=== PATIENT | male | born 1995 | race Caucasian/White ===

== ENCOUNTER 2020-08-31 11:56 | Emergency (ER) | payer OTHER, SELFPAY ==
[2020-08-31 12:24] VITALS: BP 114/63; PULSE 77; RESP 32; TEMP 37.7; O2SAT 89; BMI 22.3
--- NOTE | 2020-08-31 12:46 | XR_ITS ---
EXAMINATION: XR CHEST CLINICAL INFORMATION: SOB. COMPARISON: None TECHNIQUE: Frontal view of the chest was obtained. FINDINGS: No significant abnormality is noted involving the heart, lungs, mediastinum, bony thorax or soft tissues. XR/XR chest 1V IMPRESSION: Unremarkable chest exam.
--- NOTE | 2020-08-31 12:49 | ED.SOB ---
HPI - SOB/Dyspnea General Chief Complaint: Dyspnea Stated Complaint: DIFF BREATHING Time Seen by Provider: 08/31/20 12:41 Source: patient Mode of arrival: ambulatory Limitations: no limitations History of Present Illness HPI Narrative: 25-year-old male previously healthy here with cough, shortness of breaths and tactile temps x1 week. No chest pain, leg swelling or pain. Denies recent travel or sick contacts MD elicited complaint: shortness of breath and cough Onset (ago): week(s) (1 week) Timing: constant Severity: moderate Exacerbating factors: exertion, movement and coughing Relieving factors: rest Associated symptoms: other (tactile temps ) Treatment prior to arrival: none Related Data Previous Rx's Medication Instructions Recorded albuterol sulfate 2 inh INHALATION Q4-6H PRN #1 ea 08/31/20 ibuprofen 600 mg PO Q8H PRN #20 tab 08/31/20 prednisone 40 mg PO DAILY 4 Days #8 tab 08/31/20 Allergies Allergy/AdvReac Type Severity Reaction Status Date / Time No Known Allergies Allergy Verified 08/31/20 12:45 Review of Systems Review of Systems: Yes all other systems are reviewed and are negative Constitutional: Constitutional: Reports no additional constitutional complaints, Denies body ache(s), Denies chills, Denies fever(s), Denies headache(s) and Denies weakness Eyes: Eyes: Reports no additional eye complaints and Denies change in vision ENT: Reports system reviewed and no additional complaints, except as documented, Denies dizziness, Denies headache(s), Denies nasal congestion, Denies nasal discharge and Denies neck pain Cardiovascular: Cardiovascular: Reports no additional cardiovascular complaints, Denies chest pain, Denies leg edema and Reports dyspnea Respiratory: Respiratory: Reports no additional respiratory complaints, Reports cough and Reports dyspnea Gastrointestinal: Gastrointestinal: Reports no additional gastrointestinal complaints, Denies abdominal pain, Denies diarrhea, Denies nausea and Denies vomiting Genitourinary: Genitourinary: Denies urinary incontinence Musculoskeletal: Musculoskeletal: Reports no additional musculoskeletal complaints, Denies back pain, Denies arthralgias, Denies joint swelling, Denies neck pain, Denies numbness and Denies tingling Integumentary/Breasts: Skin/Breast: Reports system reviewed and no additional complaints, except as docu and Denies rash Neurologic: Reports system reviewed and no additional complaints, except as documented, Denies Abnormal speech present, Denies dizziness, Denies headache(s), Denies numbness, Denies tingling and Denies weakness PMFSH Past Medical History Attestation statement: The following information was validated with the patient. Source: old records reviewed and nursing notes reviewed Medical History No known health problems Social History Social History Advance Directives: No Advance Directives Information Provided: Yes Physical Exam Vital Signs: Vital Signs: Last Vital Signs Temp 98.8 F 08/31/20 15:19 Pulse 85 08/31/20 15:19 Resp 24 H 08/31/20 13:46 BP 123/65 08/31/20 15:19 Pulse Ox 100 08/31/20 15:19 Body Mass Index 22.3 Const: General: cooperative Orientation/consciousness: patient oriented x3 Limitations: no limitations HENMT: Head: Yes normal to inspection Ears: hearing grossly normal bilaterally General nose exam: Normal external nose present Face and sinus: Yes normal facial exam Mouth: Normal oral and palatal mucosa present Throat: Yes posterior oropharynx normal Eyes: General: appearance normal, both eyes and all related structures Pupils: Equal, round and reactive pupils present Neck: Neck: Yes normal visual inspection Chest: Chest palpation & inspection: normal inspection of the chest Resp: Other: patient is sitting upright, tachypnea with a rate of 32 noted, tracheal tugging and supraclavicular retractions noted. Patient has prolonged expirations, extra Navi wheezing and coarse upper airway sounds. Cardio: Rate: regular rate Rhythm: regular rhythm Peripheral pulses: Peripheral pulses 2+ throughout GI: Inspection: Yes normal to inspection Palpation (GI): Soft to palpation and nontender Auscultation: normal bowel sounds Back/Spine/Pelvis: Thoracic/Lumbar Spine: thoracic and lumbar spine normal to inspection Skin: General skin exam: no rashes or lesions noted Neuro: General: patient oriented x3, no focal motor deficits and normal sensation to monofilament Cranial nerves: Yes Equal, round and reactive pupils present Cognition (Neuro): normal cognition Speech: No Abnormal speech present Gait exam (Neuro): Normal gait present Motor exam (neuro): 5/5 motor strength present throughout Extrem: General: Yes normal to inspection Course Course Course Narrative: 25-year-old male previously healthy who arrives with shortness of breath and cough with respiratory rate in the 30s and a room air saturation of 89%. Will need a chest x-ray, labs, COVID testing, normal saline bolus, Solu-Medrol and nebulizer. 1405- Labs unremarkable. Chest x-ray negative for underlying pneumonia. COVID and influenza swab negative. Respiratory rate, tachycardia and hypoxia likely secondary to underlying asthma and not sepsis. CTA ordered to r/o PE. 1655- discussed patient with Dr. Posada. CTA negative for PE. No underlying infiltrate. Patient is feeling improved. He is up ambulating with oxygen saturation of 94%. He feels much improved and would like to be discharged home. ?viral syndrome vs underlying asthma vs bronchitis. Will treat with course of prednisone, home albuterol. Reviewed worrisome signs and symptoms when to return to the emergency department. Comfortable discharge home. MDM - SOB/Dyspnea Medical Records Attestation: I reviewed the patient's medical records. Lab Data Attestation: I reviewed the patient's lab results. Result diagrams: 08/31/20 12:57 08/31/20 12:57 Labs: Lab Results 08/31/20 08/31/20 08/31/20 Range/Units 12:56 12:57 12:57 WBC 10.7 (4.8-10.8) X10*3/uL RBC 4.95 (4.60-5.80) X10*6/uL Hgb 16.4 (14.0-18.0) g/dl Hct 47.4 (42-52) % MCV 95.8 (80-98) fL MCH 33.1 H (27.0-33.0) pg MCHC 34.6 (31.0-36.0) g/dl RDW 12.0 (11.0-16.0) % Plt Count 368 (160-400) X10*3/uL MPV 11.1 (9.4-12.4) fL Immature Gran % (Auto) 0.3 (0.0-0.4) % Neut % (Auto) 27.9 L (45-73) % Lymph % (Auto) 34.9 (20-40) % [place] % (Auto) 9.7 (2-11) % Eos % (Auto) 25.3 H (0-4) % Baso % (Auto) 1.9 (0-2) % Lymph # (Auto) 3.7 (1.2-4.9) X10*3/uL [place] # (Auto) 1.0 (0.1-1.2) X10*3/uL Eos # (Auto) 2.7 H (0.0-0.4) X10*3/uL Baso # (Auto) 0.2 (0.0-0.2) X10*3/uL Abs Immat Gran (auto) 0.03 (0.00-0.03) X10*3/uL Absolute Neuts (auto) 3.0 (2.0-8.3) X10*3/uL Absolute Nucleated RBC 0.000 (0.0-0.012) X10*3/uL Nucleated RBC % (auto) 0.0 (0.0-0.2) /100WBC Sodium 138 (135-145) mmol/L Potassium 3.9 (3.3-5.1) mmol/l Chloride 97 (96-108) mmol/L Carbon Dioxide 32 H (22-29) mmol/L Anion Gap 13 (12-20) BUN 17 H (9-16) mg/dL Creatinine 1.10 (0.5-1.4) mg/dL Estim Creat Clear Calc 87.1 Estimated GFR > 60 Random Glucose 111 (60-115) mg/dL Lactic Acid 1.2 (0.5-2.0) mmol/L Calcium 9.5 (8.4-10.2) mg/dL Magnesium 2.2 (1.6-2.6) mg/dL Total Bilirubin 1.2 H (0.0-1.0) mg/dL Direct Bilirubin 0.4 (0.0-0.5) mg/dL AST 12 (5-37) U/L ALT 8 (0-40) U/L Alkaline Phosphatase 79 (39-117) U/L Total Protein 8.2 H (6.5-8.0) g/dL Albumin 4.3 (3.5-5.0) g/dL Coronavirus (PCR) (Negative) Influenza Type A (PCR) (Negative) Influenza Type B (PCR) (Negative) RSV RNA Qual (PCR) (Negative) 08/31/20 Range/Units 13:13 WBC (4.8-10.8) X10*3/uL RBC (4.60-5.80) X10*6/uL Hgb (14.0-18.0) g/dl Hct (42-52) % MCV (80-98) fL MCH (27.0-33.0) pg MCHC (31.0-36.0) g/dl RDW (11.0-16.0) % Plt Count (160-400) X10*3/uL MPV (9.4-12.4) fL Immature Gran % (Auto) (0.0-0.4) % Neut % (Auto) (45-73) % Lymph % (Auto) (20-40) % [place] % (Auto) (2-11) % Eos % (Auto) (0-4) % Baso % (Auto) (0-2) % Lymph # (Auto) (1.2-4.9) X10*3/uL [place] # (Auto) (0.1-1.2) X10*3/uL Eos # (Auto) (0.0-0.4) X10*3/uL Baso # (Auto) (0.0-0.2) X10*3/uL Abs Immat Gran (auto) (0.00-0.03) X10*3/uL Absolute Neuts (auto) (2.0-8.3) X10*3/uL Absolute Nucleated RBC (0.0-0.012) X10*3/uL Nucleated RBC % (auto) (0.0-0.2) /100WBC Sodium (135-145) mmol/L Potassium (3.3-5.1) mmol/l Chloride (96-108) mmol/L Carbon Dioxide (22-29) mmol/L Anion Gap (12-20) BUN (9-16) mg/dL Creatinine (0.5-1.4) mg/dL Estim Creat Clear Calc Estimated GFR Random Glucose (60-115) mg/dL Lactic Acid (0.5-2.0) mmol/L Calcium (8.4-10.2) mg/dL Magnesium (1.6-2.6) mg/dL Total Bilirubin (0.0-1.0) mg/dL Direct Bilirubin (0.0-0.5) mg/dL AST (5-37) U/L ALT (0-40) U/L Alkaline Phosphatase (39-117) U/L Total Protein (6.5-8.0) g/dL Albumin (3.5-5.0) g/dL Coronavirus (PCR) NEGATIVE (Negative) Influenza Type A (PCR) NEGATIVE (Negative) Influenza Type B (PCR) NEGATIVE (Negative) RSV RNA Qual (PCR) NEGATIVE (Negative) Imaging Data Chest x-ray: Attestation: I personally reviewed and interpreted this imaging study as follows: Radiologist's impression: EXAMINATION: XR CHEST CLINICAL INFORMATION: SOB. COMPARISON: None TECHNIQUE: Frontal view of the chest was obtained. FINDINGS: No significant abnormality is noted involving the heart, lungs, mediastinum, bony thorax or soft tissues. XR/XR chest 1V IMPRESSION: Unremarkable chest exam. Discharge Plan Discharge Clinical Impression: Bronchitis Patient Disposition: Home, Self-Care Instructions: Acute Bronchitis (ED) Additional Instructions: Start your prednisone tomorrow Use your inhaler starting today every 4-6 hours as needed for cough or wheezing Increase fluids, rest follow-up with your primary care doctor Prescriptions: New prednisone 20 mg tablet 40 mg PO DAILY 4 Days Qty: 8 RF: 0 ibuprofen 600 mg tablet 600 mg PO Q8H PRN (Reason: fever or pain) Qty: 20 RF: 0 albuterol sulfate 90 mcg/actuation aerosol powdr breath activated 2 inh inhalation Q4-6H PRN (Reason: shortness of breath or wheezing) Qty: 1 RF: 0 Referrals: Physician,None [Primary Care Provider] - 2 days Stand Alone Forms: Work/School Release Interventions: ED Discharge Assessment Last Done: 08/31/20 17:00 Discharge Date/Time: 08/31/20 17:02
[2020-08-31] MEDS: 0.9 % Sodium Chloride 1,000 ML 999 ML IV (12:55)
[2020-08-31] MEDS: methylPREDNISolone Sod Succ/PF 125 MG/2 ML VIAL IVPUSH (12:55)
[2020-08-31 13:06] VITALS: PULSE 96; O2SAT 100
[2020-08-31] MEDS: Albuterol Sulfate (0.083%) 2.5 MG/3 ML VIAL.NEB 10 MG INHALE (13:06)
[2020-08-31 13:13] LABS: MANUAL DIFF FLAG NO
[2020-08-31 13:18] LABS: Basophils Absolute Auto 0.2 X10*3/uL (0.0-0.2); Basophils Percent Auto 1.9 % (0-2); Eosinophils Absolute Auto 2.7 X10*3/uL (0.0-0.4); Eosinophils Percent Auto 25.3 % (0-4); Hematocrit 47.4 % (42-52); Hemoglobin 16.4 g/dl (14.0-18.0); Imm Gran Abs Auto 0.03 X10*3/uL (0.00-0.03); Imm Gran Pct Auto 0.3 % (0.0-0.4); Lymphocytes Absolute Auto 3.7 X10*3/uL (1.2-4.9); Lymphocytes Percent Auto 34.9 % (20-40); Mean Corpuscular HGB Conc 34.6 g/dl (31.0-36.0); Mean Corpuscular Hemoglobin 33.1 pg (27.0-33.0); Mean Corpuscular Volume 95.8 fL (80-98); Mean Platelet Volume 11.1 fL (9.4-12.4); Monocytes Percent Auto 9.7 % (2-11); Neutrophils Percent Auto 27.9 % (45-73); Platelet Count 368 X10*3/uL (160-400); Red Blood Count 4.95 X10*6/uL (4.60-5.80); White Blood Count 10.7 X10*3/uL (4.8-10.8)
[2020-08-31 13:35] LABS: Lactic Acid 1.2 mmol/L (0.5-2.0)
[2020-08-31 13:41] LABS: Alanine Aminotransferase 8 U/L (0-40); Albumin Level 4.3 g/dL (3.5-5.0); Alkaline Phosphatase 79 U/L (39-117); Anion Gap 13 (12-20); Aspartate Amino Transferase 12 U/L (5-37); Bilirubin Direct 0.4 mg/dL (0.0-0.5); Bilirubin Total 1.2 mg/dL (0.0-1.0); Blood Urea Nitrogen 17 mg/dL (9-16); Calcium 9.5 mg/dL (8.4-10.2); Carbon Dioxide 32 mmol/L (22-29); Chloride 97 mmol/L (96-108); Creatinine Clr Calc Pharmacy 87.1; Estimated Glomerular Filt Rate > 60; Glucose Random 111 mg/dL (60-115); Magnesium 2.2 mg/dL (1.6-2.6); Potassium 3.9 mmol/l (3.3-5.1); Sodium 138 mmol/L (135-145); Total Protein 8.2 g/dL (6.5-8.0)
[2020-08-31 13:46] VITALS: BP 110/50; PULSE 108; RESP 24
[2020-08-31 13:58] LABS: Influenza A PCR NEGATIVE (Negative); Influenza B PCR NEGATIVE (Negative); Resp Syncy Virus RNA Qual PCR NEGATIVE (Negative); SARS COV2 PCR INHOUSE NEGATIVE (Negative)
--- NOTE | 2020-08-31 14:12 | CT_ITS ---
EXAMINATION: CT ANGIOGRAM OF THE CHEST WITH AND WITHOUT CONTRAST (CT PULMONARY ANGIOGRAM FOR PE) CLINICAL INFORMATION: Reason for Exam hypoxia, shortness of breath, r/o pe COMPARISON: Chest x-ray from earlier the same day TECHNIQUE: Prior to contrast administration, noncontrast localization images were obtained. Subsequently, multidetector volumetric imaging was performed from the thoracic inlet to below the diaphragms following the administration of 65 mL Omnipaque 350 intravenous contrast. No contrast reaction reported Sagittal, coronal, and MIP oblique sagittal reformatted images were obtained on the CT workstation, uploaded to PACS, and reviewed. This CT examination was performed using dose optimization techniques as appropriate, variously including the following: *Automated exposure control *Adjustment of mA and/or kV according to patient size (this includes techniques or standardized protocols for targeted exams where dose is matched to indication/reason for exam; i.e. extremities or head) *Use of iterative reconstruction technique Total exam dose-length product 240 mGy-cm FINDINGS: QUALITY OF STUDY/CONTRAST BOLUS: Satisfactory. PULMONARY ARTERIES: No central or segmental pulmonary emboli. THORACIC AORTA: No aneurysm or dissection. LUNG: There are scattered areas of mild bronchial wall thickening and soft tissue opacification. There are small areas of increased peribronchial attenuation seen in the right lower lobe at the right lung base. The largest area measures 5 x 7 mm axial image 376 series 9. The lungs are otherwise clear. No evidence of a pneumonia is seen. PLEURA: No pleural effusion or pneumothorax. MEDIASTINUM: Normal heart size. No pericardial effusion. There is shotty mediastinal and bilateral hilar lymphadenopathy. No enlarged lymph nodes are seen. No evidence of septal bowing or right heart strain. CHEST WALL/AXILLA: No axillary or internal mammary lymphadenopathy. OSSEOUS STRUCTURES: No acute or suspicious osseous abnormality. UPPER ABDOMEN: Unremarkable. No reflux of contrast into the hepatic veins to suggest elevated right heart pressures. CT/CT angio chest PE protocol IMPRESSION: No evidence of pulmonary embolism. Scattered areas of mild bronchial wall thickening and increased peribronchial attenuation suggestive of airways disease. No evidence of pneumonia. VTE: negative
[2020-08-31] MEDS: iohexoL 350 MG/ML 100 ML INFUS..BTL IV (14:50)
--- NOTE | 2020-08-31 15:14 | PC.NURSE ---
pt resting comfortably, remains ns on monitor. resps are nonlabored and pt is speaking in full clear sentences. pt slightly drowsy but denies discomfort. bronchial and vesicular ls clear, no accessory muscle use noted. awaitng ct reprt. 02 titrted to 1lpm
[2020-08-31 15:19] VITALS: BP 123/65; PULSE 85; TEMP 37.1; O2SAT 100
== END 2020-08-31 17:02 | disposition home or self-care (01) ==
PROVIDERS: Nurse Practitioner Family; Emergency Provider Internal Medicine
DX: J20.9 Acute bronchitis, unspecified (principal); R05 Cough; R06.02 Shortness of breath; Z20.828 Contact with and (suspected) exposure to other viral communicable diseases; Z79.899 Other long term (current) drug therapy
CPT/HCPCS: 0241U; 36415; 71045; 71275; 80048; 80076; 83605; 83735; 85025; 87040; 94640; 94644; 96361; 96374; 99284; J2930; Q9967

== ENCOUNTER 2020-09-30 19:13 | Emergency (ER) | payer OTHER, SELFPAY ==
--- NOTE | 2020-09-30 | XR_ITS ---
EXAMINATION: XR CHEST CLINICAL INFORMATION: SOB with wheezing. COMPARISON: None TECHNIQUE: 2 views of the chest were obtained. FINDINGS: The lungs are hyperinflated but clear of acute process. The heart size and pulmonary vascularity is normal. No gross bony abnormality seen. XR/XR chest 2V IMPRESSION: Hyperinflated lungs without acute process.
[2020-09-30 19:17] VITALS: BP 166/75; PULSE 93; RESP 24; TEMP 36.7; O2SAT 94; BMI 23.8
[2020-09-30] MEDS: Magnesium Sulfate/H2O 2 GM/50 ML PIGGYBACK IV (19:50)
--- NOTE | 2020-09-30 19:53 | ED.ASTHMA ---
HPI - Asthma General Chief Complaint: Asthma Stated Complaint: Bronchitis Time Seen by Provider: 09/30/20 19:51 Source: patient Mode of arrival: ambulatory Limitations: no limitations History of Present Illness HPI Narrative: seen here on 08/31 dx with asthma had negative CTA - sent home with prednisone and inhaler but could not fill due to lack of ID MD complaint: asthma attack Onset (ago): week(s) (2) Severity: severe and similar to prior Context: none known Associated symptoms: dry cough Asthma History: childhood onset Treatments Prior to Arrival: inhaled bronchodilator Related Data Allergies Allergy/AdvReac Type Severity Reaction Status Date / Time No Known Allergies Allergy Verified 08/31/20 12:45 Review of Systems Review of Systems: Constitutional : No Fever, No Chills ENT/Mouth : No Hoarseness, No sore throat, No Rhinorrhea Eyes: No Redness, No Discharge, No Vision Changes Cardiovascular : No Chest Pain, positive SOB, positive Dyspnea on Exertion, No Edema Respiratory : positive Cough, No Sputum, positive Wheezing, Gastrointestinal : No Nausea, No Vomiting, No Diarrhea, No abdominal Pain Genitourinary : No Dysuria, No Hematuria Musculoskeletal : No joint pain, No Myalgias Skin : No rash Neuro : No Weakness, No Numbness, No Headache Psych : No anxiety, depression Heme/Lymph: No Bruising, No Bleeding Endocrine : No Polyuria, No Polydipsia All other systems reviewed and are negative PMFSH Past Medical History Attestation statement: The following information was validated with the patient. Medical History (Updated 09/30/20 @ 21:31 by Danelle Carmona DO) Asthma No known health problems Social History Social History (Updated 09/30/20 @ 20:03 by Danelle Carmona DO) Smoking Status: Never smoker Use of substances other than those prescribed or required for medical reasons: Yes Substance Use Type: Marijuana Substance Use Frequency: Occasionally Advance Directives: No Advance Directives Information Provided: Yes Physical Exam Vital Signs: Vital Signs: Last Vital Signs Temp 98.8 F 09/30/20 21:40 Pulse 130 H 09/30/20 21:40 Resp 10 L 09/30/20 21:40 BP 159/72 H 09/30/20 21:40 Pulse Ox 98 09/30/20 21:40 Body Mass Index 23.8 Appearance: Alert. Oriented X3. Moderate acute distress. Eyes: Pupils equal, round and reactive to light. ENT: Pharynx normal. Neck: Normal inspection. Neck supple. CVS: Normal heart rate and rhythm. Pulses normal. Respiratory: Moderate respiratory distress. Breath sounds audible exp and insp wheezes, retractions tachypnea Abdomen: Soft and nontender. Skin: Skin warm and diaphoretic. Normal skin color. Normal skin turgor. Extremities: No lower extremity edema. No calf ttp Neuro: Oriented X 3. No motor deficit. No sensory deficit. Course Course Course Narrative: repeat 10mg neb, still hypoxic and wheezing - COVID negative after 2nd treatment HR in 130s lungs improved, 100% I planned to admit him but he refuses, has no ID for prescriptions will give dexamethasone liquid and INH in hand, he is aware I am worried he could but he states he doesn't want to stay feels better and will not be here on New Years [place] after attempting to walk out the patient now agrees to stay MDM - Asthma MDM Narrative Medical decision making narrative: 25 yo male asthmatic seen for same recently - did not fill Rx due to lack of ID - at this time will need hour long 10mg neb, IV steroids, IV magnesium, dispo per results and improvement Lab Data Result diagrams: 09/30/20 20:11 09/30/20 20:11 Labs: Lab Results 09/30/20 09/30/20 09/30/20 Range/Units 20:11 20:11 20:11 WBC 10.5 (4.8-10.8) X10*3/uL RBC 4.55 L (4.60-5.80) X10*6/uL Hgb 15.0 (14.0-18.0) g/dl Hct 43.5 (42-52) % MCV 95.6 (80-98) fL MCH 33.0 (27.0-33.0) pg MCHC 34.5 (31.0-36.0) g/dl RDW 11.5 (11.0-16.0) % Plt Count 301 (160-400) X10*3/uL MPV 11.7 (9.4-12.4) fL Immature Gran % (Auto) 0.3 (0.0-0.4) % Neut % (Auto) 55.5 (45-73) % Lymph % (Auto) 22.2 (20-40) % [place] % (Auto) 11.2 H (2-11) % Eos % (Auto) 10.1 H (0-4) % Baso % (Auto) 0.7 (0-2) % Lymph # (Auto) 2.3 (1.2-4.9) X10*3/uL [place] # (Auto) 1.2 (0.1-1.2) X10*3/uL Eos # (Auto) 1.1 H (0.0-0.4) X10*3/uL Baso # (Auto) 0.1 (0.0-0.2) X10*3/uL Abs Immat Gran (auto) 0.03 (0.00-0.03) X10*3/uL Absolute Neuts (auto) 5.8 (2.0-8.3) X10*3/uL Absolute Nucleated RBC 0.000 (0.0-0.012) X10*3/uL Nucleated RBC % (auto) 0.0 (0.0-0.2) /100WBC Sodium 140 (135-145) mmol/L Potassium 4.6 (3.3-5.1) mmol/l Chloride 100 (96-108) mmol/L Carbon Dioxide 32 H (22-29) mmol/L Anion Gap 13 (12-20) BUN 17 H (9-16) mg/dL Creatinine 0.91 (0.5-1.4) mg/dL Estim Creat Clear Calc 97.5 Estimated GFR > 60 Random Glucose 123 H (60-115) mg/dL Calcium 9.0 (8.4-10.2) mg/dL COVID-19 ([facility]) Negative (Negative) COVID-19 Clin Com See Note Critical Care Time Critical Care Time Critical Care Time: Yes Total Critical Care Time: 60 Attestation: 2 hour long 10mg neb treatments, supplemental O2 I attest to this time spent taking care of the patient Discharge Plan Discharge Clinical Impression: Asthma with acute exacerbation Qualifiers: Asthma severity: moderate Asthma persistence: persistent Qualified Code(s): J45.41 - Moderate persistent asthma with (acute) exacerbation Patient Disposition: Admitted As Inpatient Additional Instructions: return to ED for any worsening symptoms or concerns IT WAS RECOMMENDED YOU STAY IN THE HOSPITAL AND RECEIVE TREATMENT FOR YOUR ASTHMA, IT WAS VERY SEVERE, YOU CAN COME BACK IF YOU CHANGE YOUR MIND AT ANY TIME, USE INHALER 4 PUFFS EVERY 2 TO 4 HOURS NEEDED FOR WHEEZING, YOU WERE GIVEN AN ORAL STEROID THAT SHOULD LAST THE NEXT FEW DAYS IN YOUR SYSTEM Discharge Date/Time: 09/30/20 22:06 Print Language: Bulgarian
[2020-09-30] MEDS: methylPREDNISolone Sod Succ/PF 125 MG/2 ML VIAL IVPUSH (20:00)
[2020-09-30] MEDS: Albuterol Sulfate (0.083%) 2.5 MG/3 ML VIAL.NEB 10 MG INHALE ×2 (20:01→20:49)
[2020-09-30 20:19] LABS: MANUAL DIFF FLAG NO
[2020-09-30 20:20] LABS: Basophils Absolute Auto 0.1 X10*3/uL (0.0-0.2); Basophils Percent Auto 0.7 % (0-2); Eosinophils Absolute Auto 1.1 X10*3/uL (0.0-0.4); Eosinophils Percent Auto 10.1 % (0-4); Hematocrit 43.5 % (42-52); Imm Gran Abs Auto 0.03 X10*3/uL (0.00-0.03); Imm Gran Pct Auto 0.3 % (0.0-0.4); Lymphocytes Absolute Auto 2.3 X10*3/uL (1.2-4.9); Lymphocytes Percent Auto 22.2 % (20-40); Mean Corpuscular HGB Conc 34.5 g/dl (31.0-36.0); Mean Corpuscular Volume 95.6 fL (80-98); Mean Platelet Volume 11.7 fL (9.4-12.4); Monocytes Absolute Auto 1.2 X10*3/uL (0.1-1.2); Monocytes Percent Auto 11.2 % (2-11); Neutrophils Absolute Auto 5.8 X10*3/uL (2.0-8.3); Neutrophils Percent Auto 55.5 % (45-73); Platelet Count 301 X10*3/uL (160-400); Red Blood Count 4.55 X10*6/uL (4.60-5.80); Red Cell Distribution Width 11.5 % (11.0-16.0); White Blood Count 10.5 X10*3/uL (4.8-10.8)
[2020-09-30 20:25] VITALS: BP 119/56; PULSE 129; RESP 22; RESP 26; TEMP 37.2; O2SAT 100
[2020-09-30 20:33] LABS: COVID-19 Test Negative (Negative); IDNOW Serial# 9DD0AD1C
[2020-09-30 20:50] VITALS: O2SAT 96
[2020-09-30 20:59] LABS: Anion Gap 13 (12-20); Blood Urea Nitrogen 17 mg/dL (9-16); Carbon Dioxide 32 mmol/L (22-29); Chloride 100 mmol/L (96-108); Creatinine Clr Calc Pharmacy 97.5; Estimated Glomerular Filt Rate > 60; Glucose Random 123 mg/dL (60-115); Potassium 4.6 mmol/l (3.3-5.1); Sodium 140 mmol/L (135-145)
[2020-09-30 21:40] VITALS: BP 159/72; PULSE 130; RESP 10; TEMP 37.1; O2SAT 98
[2020-09-30] MEDS: Albuterol Sulfate 90 MCG 8 GM INHALER 2 PUFF INHALE (23:20)
--- NOTE | 2020-10-01 00:34 | P.HPHOSP_ITS ---
History of Present Illness Date of Service: 09/30/20 Chief Complaint: Asthma exacerbation This is a 25-year-old male with past medical history of asthma presents to the hospital with shortness of breath, wheezing, cough. Patient reports his symptoms started about few days ago, has no inhalers at home, is not sure if he has insurance even, and have worsened. Patient has no fever or chills, has no recent sick contacts or recent travel. No abdominal pain. He has nausea and had 1 episode of vomiting in the ED. Has no diarrhea constipation. No urinary symptoms and no lower extremity edema. On arrival to the ED patient's temp of 99.8?, respiratory rate of 24, blood pressure 166/75, heart rate of 93, satting 94% on room air. Patient desats to 90% on movement. Past medical history: Asthma Surgical history: Denies any surgeries Family history: Positive for diabetes Social history: Smokes weed sometimes denies smoking tobacco use any alcohol or illicit drugs. Review of Systems Review of Systems: Yes all other systems are reviewed and are negative [facility] Medical History Asthma No known health problems Social History (Updated 09/30/20 @ 20:03 by Danelle Carmona DO) Smoking Status: Never smoker Use of substances other than those prescribed or required for medical reasons: Yes Substance Use Type: Marijuana Substance Use Frequency: Occasionally Advance Directives: No Advance Directives Information Provided: Yes Meds Allergies Allergy/AdvReac Type Severity Reaction Status Date / Time No Known Allergies Allergy Verified 08/31/20 12:45 Home Medications Medication Instructions Recorded Confirmed Type No Known Home Meds 09/30/20 09/30/20 History Physical Exam Vital Signs and Narrative: Vital Signs: Last Vital Signs Temp 98.8 F 09/30/20 21:40 Pulse 130 H 09/30/20 21:40 Resp 10 L 09/30/20 21:40 BP 159/72 H 09/30/20 21:40 Pulse Ox 98 09/30/20 21:40 Body Mass Index 23.8 Const: General: cooperative and no acute distress Orientation/consciousness: patient oriented x3 Eyes: General: appearance normal, both eyes and all related structures Resp: Effort & Inspection: normal respiratory effort and able to speak in complete sentences Auscultation: wheezes Cardio: Rate: regular rate Rhythm: regular rhythm GI: Palpation (GI): Soft to palpation Auscultation: normal bowel sounds Skin: General skin exam: no rashes or lesions noted Neuro: General: patient oriented x3 Cognition (Neuro): normal cognition Extrem: General: Yes normal to inspection and Yes no pedal edema Results Labs CBC and Chem 7: 09/30/20 20:11 09/30/20 20:11 Labs: Laboratory Results - last 24 hr 09/30/20 09/30/20 09/30/20 20:11 20:11 20:11 MCV 95.6 MCH 33.0 MCHC 34.5 RDW 11.5 Plt Count 301 MPV 11.7 Immature Gran % (Auto) 0.3 Neut % (Auto) 55.5 Lymph % (Auto) 22.2 [place] % (Auto) 11.2 H Eos % (Auto) 10.1 H Baso % (Auto) 0.7 Lymph # (Auto) 2.3 [place] # (Auto) 1.2 Eos # (Auto) 1.1 H Baso # (Auto) 0.1 Abs Immat Gran (auto) 0.03 Absolute Neuts (auto) 5.8 Absolute Nucleated RBC 0.000 Nucleated RBC % (auto) 0.0 Anion Gap 13 Estim Creat Clear Calc 97.5 Estimated GFR > 60 Random Glucose 123 H Calcium 9.0 COVID-19 ([facility]A) Negative COVID-19 Clin Com See Note Imaging Radiologist's Impressions: Impressions Chest X-Ray 09/30/20 00:00 IMPRESSION: Hyperinflated lungs without acute process. Assessment and Plan (1) Asthma exacerbation: Qualifiers: Asthma severity: moderate Asthma persistence: persistent Qualified Code(s): J45.41 - Moderate persistent asthma with (acute) exacerbation Status: Acute 25-year-old male who presents to the hospital with asthma exacerbation. # asthma exacerbation - COVID-19 negative, pneumonia negative on chest x-ray - afebrile no leukocytosis - will start him on DuoNeb q.i.d. as well as p.r.n., as well as Solu-Medrol 40 IV b.i.d. - monitor respiratory status
--- NOTE | 2020-10-01 01:59 | PC.NURSE ---
Patient's vital signs were as follows 124/84, 17, 99 % room air, 94 HR
--- NOTE | 2020-10-01 04:00 | PC.NURSE ---
Patient is sleeping, respiratory rate equal and unlabored. Patient's respiratory rate is 15. Patient is currently waiting for bed assignment.
--- NOTE | 2020-10-01 07:42 | PC.NURSE ---
pt states he does not want to stay for admission, states he is going to call his sister when she is awake at 9am and have her come get him. HE states understanding of risk associated with leaving AMA.
[2020-10-01 08:08] VITALS: BP 149/8; PULSE 82; RESP 16; TEMP 37.1; O2SAT 98
[2020-10-01 08:22] LABS: Hematocrit 41.1 % (42-52); Hemoglobin 14.3 g/dl (14.0-18.0); Mean Corpuscular HGB Conc 34.8 g/dl (31.0-36.0); Mean Corpuscular Hemoglobin 32.9 pg (27.0-33.0); Mean Corpuscular Volume 94.7 fL (80-98); Mean Platelet Volume 11.5 fL (9.4-12.4); Platelet Count 318 X10*3/uL (160-400); Red Blood Count 4.34 X10*6/uL (4.60-5.80); Red Cell Distribution Width 11.6 % (11.0-16.0)
[2020-10-01 08:24] LABS: WBC ABN SCTR FOR CBC 1
[2020-10-01 08:43] LABS: Band Neutrophils Percent 2 % (3-5); Lymphocytes Percent Manual 20 % (20-40); Monocytes Percent Manual 9 % (2-11); Neutrophils Percent Manual 69 % (45-73); Platelet Estimate NORMAL (NORMAL); Platelet Morphology Comment NORMAL; RBC Morphology NORMAL
[2020-10-01 08:44] LABS: Lymphocytes Absolute Manual 1.9 X10*3/uL (0.6-4.8); Monocytes Absolute Manual 0.8 X10*3/uL (0.0-1.2); Neutrophils Absolute Manual 6.6 X10*3/uL (2.2-7.9); White Blood Count 9.3 X10*3/uL (4.8-10.8)
[2020-10-01 08:52] LABS: Anion Gap 12 (12-20); Blood Urea Nitrogen 15 mg/dL (9-16); Calcium 9.5 mg/dL (8.4-10.2); Carbon Dioxide 31 mmol/L (22-29); Chloride 100 mmol/L (96-108); Creatinine Clr Calc Pharmacy 119.8; Estimated Glomerular Filt Rate > 60; Glucose Random 142 mg/dL (60-115); Potassium 4.3 mmol/l (3.3-5.1); Sodium 139 mmol/L (135-145)
--- NOTE | 2020-10-02 12:54 | MHC.CM.ED ---
i spoke c patient's - alvarado and grandson - geni, patient lives c both of them and they are his caregivers. unfortunately, geni has a re-injured bad back from helping his grandfather this a.m. and alvarado is elderly herself. they are requesting help c pt's adl's in the home. because of insurances this would be a groves pay scenario and would not be able to happen until next week d/t holiday weekend. additionally, the family said they cannot afford such svcs. this being said, if patient were to return home then the care would fall on the family again, at this time they are supporting patient go to [facility], possibly getting a PT eval tomorrow - monday and then transferring. pt has been to [facility] before. this conversation was shared with the PA in the e.d. caring for patient. cm to cont. to follow.
== END 2020-10-01 09:38 | disposition home or self-care (01) ==
PROVIDERS: Internal Medicine; Emergency Provider Emergency Medicine
DX: J45.41 Moderate persistent asthma with (acute) exacerbation (principal); Z20.828 Contact with and (suspected) exposure to other viral communicable diseases
CPT/HCPCS: 36415; 71046; 80048; 85007; 85025; 85027; 87635; 94640; 96365; 96375; 99285; 99291; J2920; J2930; J3475

== ENCOUNTER 2021-05-17 04:16 | Emergency (ER) | payer OTHER, SELFPAY ==
--- NOTE | ~2021-05-17 | XR_ITS ---
EXAMINATION: XR CHEST CLINICAL INFORMATION: Productive cough COMPARISON: 09/30/2020 TECHNIQUE: Frontal view of the chest was obtained. FINDINGS: Cardiac leads overlie the chest. The lungs are well expanded. There is no focal consolidation, edema, or effusion. No pneumothorax. The cardiomediastinal silhouette is within normal limits. No acute osseous abnormality. XR/XR chest 1V IMPRESSION: No acute pulmonary finding.
[2021-05-17 04:57] VITALS: BP 149/102; PULSE 101; RESP 20; TEMP 37.4; O2SAT 96; BMI 23.2
[2021-05-17 05:18] LABS: COVID-19 Test Negative (Negative); IDNOW Serial# 9DD0AD1C
--- NOTE | 2021-05-17 05:35 | ED.ASTHMA ---
HPI - Asthma General Chief Complaint: Asthma Stated Complaint: asthma Time Seen by Provider: 05/17/21 05:27 Source: patient Mode of arrival: ambulatory History of Present Illness HPI Narrative: This is a 26-year-old male with history of asthma states that he ran out of his medication as had progressive worsening of shortness of breath with associated chest tightness and he reports productive cough over the past day. Patient otherwise denies any sore throat, fever, chills, recent travel. Related Data Previous Rx's Medication Instructions Recorded albuterol sulfate 90 mcg/actuation 2 puff INHALATION Q6H PRN #6.7 g 10/01/20 aerosol inhaler prednisone 20 mg tablet 40 mg PO DAILY PRN #10 tab 10/01/20 Allergies Allergy/AdvReac Type Severity Reaction Status Date / Time No Known Allergies Allergy Verified 05/17/21 04:57 Review of Systems Review of Systems: Pertinent positives and negatives as stated in HPI 10 point review of systems is otherwise negative. [facility] Past Medical History Source: nursing notes reviewed Medical History Asthma No known health problems Social History Social History Substance Use Type: Marijuana Advance Directives: No Advance Directives Information Provided: Yes Physical Exam Vital Signs: Vital Signs: Last Vital Signs Temp 99.4 F 05/17/21 04:57 Pulse 94 05/17/21 06:38 Resp 10 L 05/17/21 06:38 BP 149/102 H 05/17/21 04:57 Pulse Ox 87 L 05/17/21 06:38 Body Mass Index 23.2 VITAL SIGNS: Reviewed. GENERAL: Well developed, well nourished, in no acute distress. HEAD: Normocephalic/atraumatic EYES: PERRLA, EOMI OROPHARYNX: no oral lesions noted, posterior pharynx clear NECK: Supple, no adenopathy LUNGS: Poor inspiratory effort, wheezing throughout without noted rhonchi or rales, tachypnea SpO2<93> CARDIOVASCULAR: Regular rate and rhythm without noted murmurs ABDOMEN: Soft, non-tender, non-distended with bowel sounds. SKIN: Inspection of the skin reveals no rashes NEUROLOGIC: Alert and oriented x 4. Course Course Course Narrative: This is a 26-year-old male with history and clinical presentation consistent with moderate to severe asthma exacerbation will be treated with nebulized treatment as well as steroids and magnesium. On re-evaluation and review of all investigations patient reports he is feeling better, however was noted to be 87% while sleeping and chest x-ray/COVID testing is negative for acute findings. Patient is now receiving his 2nd 10 mg nebulized treatment with continued wheezing throughout. Case discussed with inpatient hospitalist who agrees and accepts admission. MDM - Asthma Lab Data Labs: Lab Results 05/17/21 Range/Units 05:00 COVID-19 ([facility]A) Negative (Negative) COVID-19 Clin Com See Note Discharge Plan Discharge Clinical Impression: Asthma with acute exacerbation, Hypoxia Patient Disposition: Admitted As Inpatient Prescriptions: No Action prednisone 20 mg tablet 40 mg PO DAILY PRN (Reason: 5 days) Qty: 10 RF: 0 albuterol sulfate 90 mcg/actuation HFA aerosol inhaler 2 puff inhalation Q6H PRN (Reason: shortness of breath or wheezing) Qty: 6.7 RF: 0
[2021-05-17] MEDS: Albuterol Sulfate (0.083%) 2.5 MG/3 ML VIAL.NEB 10 MG INHALE ×2 (05:37→06:50)
[2021-05-17] MEDS: methylPREDNISolone Sod Succ 125 MG/2 ML VIAL IVPUSH (05:38)
[2021-05-17] MEDS: Magnesium Sulfate/H2O 2 GM/50 ML PIGGYBACK IV (05:38)
[2021-05-17 06:38] VITALS: PULSE 94; RESP 10; O2SAT 87
[2021-05-17 06:53] VITALS: PULSE 90; O2SAT 92
[2021-05-17 07:02] LABS: MANUAL DIFF FLAG NO
[2021-05-17 07:35] LABS: Alanine Aminotransferase 11 U/L (0-40); Albumin Level 4.6 g/dL (3.5-5.0); Alkaline Phosphatase 75 U/L (39-117); Anion Gap 12 (12-20); Aspartate Amino Transferase 14 U/L (5-37); Bilirubin Total 1.1 mg/dL (0.0-1.0); Blood Urea Nitrogen 12 mg/dL (9-16); Calcium 9.5 mg/dL (8.4-10.2); Carbon Dioxide 28 mmol/L (22-29); Chloride 101 mmol/L (96-108); Creatinine Clr Calc Pharmacy 128.8; Estimated Glomerular Filt Rate > 60; Glucose Random 131 mg/dL (60-115); Potassium 3.8 mmol/L (3.3-5.1); Sodium 137 mmol/L (135-145); Total Protein 8.1 g/dL (6.5-8.0)
[2021-05-17 08:00] VITALS: BP 152/79; PULSE 104; O2SAT 98
[2021-05-17 08:41] LABS: Basophils Absolute Auto 0.1 X10*3/uL (0.0-0.2); Eosinophils Absolute Auto 0.6 X10*3/uL (0.0-0.4); Eosinophils Percent Auto 5.6 % (0-4); Hematocrit 40.3 % (42-52); Hemoglobin 14.2 g/dl (14.0-18.0); Imm Gran Abs Auto 0.02 X10*3/uL (0.00-0.03); Imm Gran Pct Auto 0.2 % (0.0-0.4); Lymphocytes Absolute Auto 1.3 X10*3/uL (1.2-4.9); Lymphocytes Percent Auto 13.2 % (20-40); Mean Corpuscular HGB Conc 35.2 g/dl (31.0-36.0); Mean Corpuscular Volume 93.7 fL (80-98); Mean Platelet Volume 11.2 fL (9.4-12.4); Monocytes Absolute Auto 0.5 X10*3/uL (0.1-1.2); Monocytes Percent Auto 5.2 % (2-11); Neutrophils Absolute Auto 7.6 X10*3/uL (2.0-8.3); Neutrophils Percent Auto 74.8 % (45-73); Platelet Count 304 X10*3/uL (160-400); Red Cell Distribution Width 11.7 % (11.0-16.0); White Blood Count 10.2 X10*3/uL (4.8-10.8)
== END 2021-05-17 12:42 | disposition home or self-care (01) ==
PROVIDERS: Emergency Provider Student in an Organized Health Care Education/Training Program
DX: J45.901 Unspecified asthma with (acute) exacerbation (principal); R09.02 Hypoxemia; Z20.822 Contact with and (suspected) exposure to COVID-19; F12.90 Cannabis use, unspecified, uncomplicated
CPT/HCPCS: 36415; 71045; 80053; 85025; 87635; 94644; 94645; 96365; 96366; 96375; 99284; 99285; J2930; J3475

== ENCOUNTER 2021-11-22 18:40 | Emergency (ER) | payer OTHER, SELFPAY ==
[2021-11-22] VITALS (7 sets, daily range): BP systolic 108–155; BP diastolic 50–106; PULSE 91–114; RESP 20–28; TEMP 36.6–36.8; O2SAT 97–100; BMI 22.3
--- NOTE | ~2021-11-22 | XR_ITS ---
EXAMINATION: XR CHEST CLINICAL INFORMATION: Shortness of breath COMPARISON: 05/17/2021 TECHNIQUE: Frontal view of the chest was obtained. FINDINGS: No significant abnormality is noted involving the heart, lungs, mediastinum, bony thorax or soft tissues. XR/XR chest 1V IMPRESSION: Unremarkable examination.
--- NOTE | 2021-11-22 19:14 | ED_ITS ---
HPI - Asthma General Chief Complaint: Asthma Stated Complaint: asthma attack Time Seen by Provider: 11/22/21 19:12 Source: patient Mode of arrival: ambulatory Limitations: no limitations History of Present Illness HPI Narrative: Patient comes to the emergency room complaining of an asthma exacerbation that started yesterday. Patient states that his asthma usually responds well to albuterol pump. However, yesterday he ran out of medication. Patient denies fever chills Related Data Previous Rx's Medication Instructions Recorded albuterol sulfate 90 mcg/actuation 2 puff INHALATION Q6H PRN #6.7 g 10/01/20 aerosol inhaler albuterol sulfate 90 mcg/actuation 2 puff INHALATION Q4-6H PRN #8.5 g 05/17/21 aerosol inhaler (ProAir HFA) prednisone 20 mg tablet 40 mg PO DAILY #10 tab 05/17/21 albuterol sulfate 90 mcg/actuation 2 puff INHALATION Q4-6H PRN #8.5 g 11/22/21 aerosol inhaler prednisone 50 mg tablet 50 mg PO DAILY #5 tab 11/22/21 Allergies Allergy/AdvReac Type Severity Reaction Status Date / Time No Known Allergies Allergy Verified 05/17/21 04:57 Review of Systems Review of Systems: Constitutional : No Weight loss, No Fever, No Chills, No Night Sweats, No Fatigue, No Malaise ENT/Mouth : No Hearing loss, No Ear Pain, No Nasal Congestion, No Sinus Pain, No Hoarseness, No sore throat, No Rhinorrhea, No Swallowing Difficulty Eyes: No Eye Pain, No Swelling, No Redness, No Foreign Body, No Discharge, No Vision Changes Cardiovascular : No Chest Pain, No SOB, No Dyspnea on Exertion, No Orthopnea, No Edema, No Palpitations Respiratory : Complaining of mild Cough, No Sputum, complaining of wheezing or shortness of breath Gastrointestinal : No Nausea, No Vomiting, No Diarrhea, No Constipation, No abdominal Pain, No Hematochezia, No Melena Genitourinary : no irregular bleeding, No Dysuria, No Urinary Frequency, No Hematuria, No Urinary Incontinence, No Urgency, No Flank Pain, No Urinary Flow Changes, No Hesitancy Musculoskeletal : No joint pain, No Myalgias, No Joint Swelling Skin : No Skin Lesions, No rash Neuro : No Weakness, No Numbness, No Paresthesias, No Loss of Consciousness, No Dizziness, No Headache Psych : No Anxiety/Panic, No Depression, No SI/HI/AH/VH, No Social Issues, Heme/Lymph: No Bruising, No Bleeding,No Lymphadenopathy Endocrine : No Polyuria, No Polydipsia, No Temperature Intolerance PMF Past Medical History Medical History Asthma No known health problems Social History Social History Substance Use Type: Marijuana Physical Exam Vital Signs: Vital Signs: Last Vital Signs Temp 98 F 11/22/21 19:00 Pulse 107 H 11/22/21 20:43 Resp 20 11/22/21 20:43 BP 147/76 H 11/22/21 19:26 Pulse Ox 100 11/22/21 19:26 BMI result Body Mass Index 22.3 Const: Other: Appearance: Alert. Oriented X3. [id number] respiratory distress Eyes: Pupils equal, round and reactive to light. ENT: Pharynx normal. Neck: Normal inspection. Neck supple. No lymph nodes noted. No crepitus CVS: Normal heart rate and rhythm. Pulses normal. Normal S1 and S2 Respiratory: Mild to moderate respiratory distress, diffuse wheezing, oxygen saturation 94% on room air, speaking and 2 word sentences Abdomen: Soft and nontender. No rigidity. No distention. Skin: Skin warm and dry. Normal skin color. Normal skin turgor. Extremities: No lower extremity edema. No lower extremity edema. No Lacerations. No Rash Neuro: Oriented X 3. No motor deficit. No sensory deficit. Moving all ex termities. No slurred speech. Course Course Course Narrative: After 1 hour long a nebulization treatment, patient has an oxygen saturation of 94%, patient states that he feels better. However, he still wheezing. A 2nd our long nebulization treatment is being given. Patient was already given Solu- Medrol and magnesium. Depending on patient's physical exam and oxygen saturation after 2nd nebuliz ation, patient may either be discharged or admitted. Sign-out given to Dr. Goff. MDM - Asthma Lab Data Result diagrams: 11/22/21 19:17 11/22/21 19:17 Labs: Lab Results 11/22/21 11/22/21 11/22/21 Range/Units 19:17 19:17 19:17 WBC 11.0 H (4.8-10.8) X10*3/uL RBC 4.53 L (4.60-5.80) X10*6/uL Hgb 14.3 (14.0-18.0) g/dl Hct 42.8 (42.0-52.0) % MCV 94.5 (80.0-98.0) fL MCH 31.6 (27.0-33.0) pg MCHC 33.4 (31.0-36.0) g/dl RDW 13.0 (11.0-16.0) % Plt Count 494 H (160-400) X10*3/uL MPV 10.6 (9.4-12.4) fL Immature Gran % (Auto) 0.4 (0.0-0.4) % Neut % (Auto) 43.7 L (45-73) % Lymph % (Auto) 30.9 (20-40) % [place] % (Auto) 8.2 (2-11) % Eos % (Auto) 15.1 H (0-4) % Baso % (Auto) 1.7 (0-2) % Lymph # (Auto) 3.4 (1.2-4.9) X10*3/uL [place] # (Auto) 0.9 (0.1-1.2) X10*3/uL Eos # (Auto) 1.7 H (0.0-0.4) X10*3/uL Baso # (Auto) 0.2 (0.0-0.2) X10*3/uL Abs Immat Gran (auto) 0.04 H (0.00-0.03) X10*3/uL Absolute Neuts (auto) 4.8 (2.0-8.3) x10*3/uL Absolute Nucleated RBC 0.000 (0.0-0.012) X10*3/uL Nucleated RBC % (auto) 0.0 (0.0-0.2) /100WBC Smear Tech's Comments VERIFIED Sodium 142 (135-145) mmol/L Potassium 4.0 (3.3-5.1) mmol/L Chloride 103 (96-108) mmol/L Carbon Dioxide 33 H (22-29) mmol/L Anion Gap 10 L (12-20) BUN 11 (9-16) mg/dL Creatinine 0.89 (0.5-1.4) mg/dL Estim Creat Clear Calc 106.7 Estimated GFR > 60 Random Glucose 106 (60-115) mg/dL Calcium 9.9 (8.4-10.2) mg/dL COVID-19 ([facility]A) Negative (Negative) COVID-19 Clin Com See Note Discharge Plan Discharge Clinical Impression: Asthma with acute exacerbation Patient Disposition: Still a Patient Instructions: Asthma (ED) Additional Instructions: Please follow-up with your primary care physician tomorrow. If you have any worsening or new symptoms, please return to the emergency room or call 911 Prescriptions: New albuterol sulfate 90 mcg/actuation HFA aerosol inhaler 2 puff inhalation Q4-6H PRN (Reason: shortness of breath or wheezing) Qty: 8.5 1RF prednisone 50 mg tablet 50 mg PO DAILY Qty: 5 0RF No Action albuterol sulfate 90 mcg/actuation HFA aerosol inhaler 2 puff inhalation Q6H PRN (Reason: shortness of breath or wheezing) Qty: 6.7 0RF albuterol sulfate [ProAir HFA] 90 mcg/actuation HFA aerosol inhaler 2 puff inhalation Q4-6H PRN (Reason: shortness of breath or wheezing) Qty: 8.5 2RF prednisone 20 mg tablet 40 mg PO DAILY Qty: 10 0RF
[2021-11-22] MEDS: Albuterol Sulfate (0.083%) 2.5 MG/3 ML VIAL.NEB 10 MG INHALE ×3 (19:20→22:11)
[2021-11-22 19:23] LABS: Hemoglobin 14.3 g/dl (14.0-18.0); Imm Gran Abs Auto 0.04 X10*3/uL (0.00-0.03); Imm Gran Pct Auto 0.4 % (0.0-0.4); MANUAL DIFF FLAG SCAN; Monocytes Percent Auto 8.2 % (2-11); PLT CLUMP 1; SCAN SMEAR FLAG 1
[2021-11-22] MEDS: Magnesium Sulfate/H2O 2 GM/50 ML PIGGYBACK IV (19:23)
[2021-11-22] MEDS: methylPREDNISolone Sod Succ 125 MG/2 ML VIAL IVPUSH (19:24)
[2021-11-22 19:25] LABS: Basophils Absolute Auto 0.2 X10*3/uL (0.0-0.2); Basophils Percent Auto 1.7 % (0-2); Eosinophils Absolute Auto 1.7 X10*3/uL (0.0-0.4); Eosinophils Percent Auto 15.1 % (0-4); Hematocrit 42.8 % (42.0-52.0); Lymphocytes Absolute Auto 3.4 X10*3/uL (1.2-4.9); Lymphocytes Percent Auto 30.9 % (20-40); Mean Corpuscular HGB Conc 33.4 g/dl (31.0-36.0); Mean Corpuscular Hemoglobin 31.6 pg (27.0-33.0); Mean Corpuscular Volume 94.5 fL (80.0-98.0); Mean Platelet Volume 10.6 fL (9.4-12.4); Monocytes Absolute Auto 0.9 X10*3/uL (0.1-1.2); Neutrophils Absolute Auto 4.8 x10*3/uL (2.0-8.3); Neutrophils Percent Auto 43.7 % (45-73); Red Blood Count 4.53 X10*6/uL (4.60-5.80)
--- NOTE | 2021-11-22 19:36 | PC.NURSE ---
[facility] CALLS TO CONFIRM PT LOCATION @ THIS TIME
[2021-11-22 19:38] LABS: COVID-19 Test Negative (Negative)
[2021-11-22 19:45] LABS: Platelet Count 494 X10*3/uL (160-400); SLIDE REVIEW VERIFIED
[2021-11-22 19:56] LABS: Anion Gap 10 (12-20); Blood Urea Nitrogen 11 mg/dL (9-16); Calcium 9.9 mg/dL (8.4-10.2); Carbon Dioxide 33 mmol/L (22-29); Chloride 103 mmol/L (96-108); Creatinine Clr Calc Pharmacy 106.7; Estimated Glomerular Filt Rate > 60; Glucose Random 106 mg/dL (60-115); Sodium 142 mmol/L (135-145)
[2021-11-22] MEDS: Albuterol Sulfate 90 MCG 8 GM INHALER 4 PUFF INHALE (23:13)
== END 2021-11-22 23:17 | disposition home or self-care (01) ==
PROVIDERS: Emergency Medicine; Emergency Provider Student in an Organized Health Care Education/Training Program
DX: J45.901 Unspecified asthma with (acute) exacerbation (principal); R06.02 Shortness of breath; Z20.822 Contact with and (suspected) exposure to COVID-19; Z79.899 Other long term (current) drug therapy
CPT/HCPCS: 71045; 80048; 85025; 87635; 94640; 94644; 94645; 96365; 96366; 96375; 99284; 99285; J2930; J3475

== ENCOUNTER 2022-01-05 22:18 | Emergency (ER) | payer SELFPAY ==
[2022-01-05 22:21] VITALS: BP 138/94; PULSE 74; RESP 16; TEMP 36.2; O2SAT 98; BMI 21.6
== END 2022-01-06 00:43 | disposition left against medical advice (07) ==
PROVIDERS: Emergency Provider Emergency Medicine
DX: M79.672 Pain in left foot (principal); M79.89 Other specified soft tissue disorders
CPT/HCPCS: 99281; 99282

== ENCOUNTER 2022-02-07 03:41 | Emergency (ER) | payer MEDICAID, SELFPAY ==
[2022-02-07 03:49] VITALS: BP 150/89; PULSE 108; RESP 20; O2SAT 100; BMI 23.0
== END 2022-02-07 04:24 | disposition left against medical advice (07) ==
PROVIDERS: Emergency Provider Emergency Medicine
DX: T50.901A Poisoning by unspecified drugs, medicaments and biological substances, accidental (unintentional), initial encounter (principal); Y92.9 Unspecified place or not applicable
CPT/HCPCS: 99281; 99282

== ENCOUNTER 2022-02-16 16:54 | Emergency (ER) | payer MEDICAID, SELFPAY ==
--- NOTE | ~2022-02-16 | CT_ITS ---
EXAMINATION: CT ABDOMEN AND PELVIS WITHOUT CONTRAST CLINICAL INFORMATION: Abdominal pain and vomiting. Rule out appendicitis. COMPARISON: None TECHNIQUE: Multidetector volumetric imaging was performed from the superior aspect of the liver through the pubic symphysis. Sagittal and coronal reformatted images were obtained on the technologist's workstation. This CT examination was performed using dose optimization techniques as appropriate, variously including the following: *Automated exposure control *Adjustment of mA and/or kV according to patient size (this includes techniques or standardized protocols for targeted exams where dose is matched to indication/reason for exam; i.e. extremities or head) *Use of iterative reconstruction technique DLP: 348 mGy-cm FINDINGS: LUNG BASES: The visualized lung bases are unremarkable. LIVER, GALLBLADDER, AND BILIARY TREE: The liver is normal in size, shape, and attenuation. No focal hepatic lesion or biliary ductal dilatation is present. The gallbladder is unremarkable with no evidence of radiopaque gallstones, gallbladder wall thickening, or obvious pericholecystic inflammatory changes. PANCREAS: Unremarkable. SPLEEN: Unremarkable. ADRENAL GLANDS: Unremarkable. KIDNEYS AND URETERS: The kidneys are normal in size, shape, and attenuation. No hydronephrosis, hydroureter, or calculi seen. No perinephric stranding. BLADDER: Unremarkable. GASTROINTESTINAL TRACT: The stomach is unremarkable. Normal caliber small bowel. No obstruction. Visualization of the appendix is limited. Likely gas-filled normal appendix in the right pelvis as seen on series 3 image 67 and series 5 image 35. There are no inflammatory changes. The remainder of the colon is unremarkable. ABDOMINAL WALL: No significant hernia is appreciated. LYMPH NODES: Normal. VASCULAR: Unremarkable. PELVIC VISCERA: The prostate and seminal vesicles are unremarkable. OSSEOUS STRUCTURES: Unremarkable. CT/CT abdomen pelvis wo con IMPRESSION: No acute findings in the abdomen or pelvis. No inflammatory changes. Visualization of the appendix is limited, though a structure which is likely a normal appendix is seen. Fleischner guidelines were followed.
[2022-02-16 16:56] VITALS: BP 156/84; PULSE 62; RESP 18; TEMP 36.8; O2SAT 100; BMI 23.0
--- NOTE | 2022-02-16 17:15 | PC.NURSE ---
Pt vomited large quanity of undigested food in triage. No blood noted.
[2022-02-16 17:28] LABS: Hemoglobin 14.3 g/dl (14.0-18.0); Imm Gran Abs Auto 0.04 X10*3/uL (0.00-0.03); Imm Gran Pct Auto 0.4 % (0.0-0.4); WBC ABN SCTR 1
[2022-02-16 17:38] LABS: Ethanol < 10 mg/dL
[2022-02-16 17:41] LABS: Basophils Percent Auto 0.4 % (0-2); Eosinophils Percent Auto 0.1 % (0-4); Hematocrit 43.8 % (42.0-52.0); Lymphocytes Absolute Auto 3.6 X10*3/uL (1.2-4.9); Lymphocytes Percent Auto 36.1 % (20-40); Mean Corpuscular HGB Conc 32.6 g/dl (31.0-36.0); Mean Corpuscular Hemoglobin 31.6 pg (27.0-33.0); Mean Corpuscular Volume 96.7 fL (80.0-98.0); Mean Platelet Volume 11.5 fL (9.4-12.4); Monocytes Absolute Auto 0.9 X10*3/uL (0.1-1.2); Neutrophils Absolute Auto 5.3 x10*3/uL (2.0-8.3); Platelet Count 395 X10*3/uL (160-400); Red Blood Count 4.53 X10*6/uL (4.60-5.80); Red Cell Distribution Width 12.4 % (11.0-16.0)
[2022-02-16 17:42] LABS: Alanine Aminotransferase 45 U/L (0-40); Albumin Level 4.5 g/dL (3.5-5.0); Alkaline Phosphatase 82 U/L (39-117); Anion Gap 13 (12-20); Aspartate Amino Transferase 59 U/L (5-37); Bilirubin Direct 0.2 mg/dL (0.0-0.5); Bilirubin Total 0.5 mg/dL (0.0-1.0); Blood Urea Nitrogen 10 mg/dL (9-16); Calcium 10.2 mg/dL (8.4-10.2); Carbon Dioxide 28 mmol/L (22-29); Chloride 105 mmol/L (96-108); Creatinine Clr Calc Pharmacy 100.9; Estimated Glomerular Filt Rate > 60; Glucose Random 132 mg/dL (60-115); Potassium 4.5 mmol/L (3.3-5.1); Sodium 141 mmol/L (135-145); Total Protein 8.5 g/dL (6.5-8.0)
[2022-02-16 17:44] LABS: Influenza A Negative (Negative); Influenza B2 Negative (Negative)
[2022-02-16 17:45] LABS: COVID-19 Test Negative (Negative); IDNOW Serial# 16C4AD1C
[2022-02-16 17:49] LABS: WBC ABN SCTR FOR CBC 1; White Blood Count 9.8 X10*3/uL (4.8-10.8)
[2022-02-16 17:50] LABS: MANUAL DIFF FLAG NO
[2022-02-16 22:05] VITALS: BP 142/71; PULSE 80; RESP 16; TEMP 36.8; O2SAT 99
--- NOTE | 2022-02-16 22:23 | ED_ITS ---
HPI - Abdominal Pain General Chief Complaint: Abdominal Pain Stated Complaint: Abd pain Time Seen by Provider: 02/16/22 22:17 Source: patient Mode of arrival: ambulatory Limitations: no limitations History of Present Illness HPI narrative: 27-year-old male came in for evaluation of an abdominal pain. Patient been having right-sided abdominal pain for a year, pain was described as intermittent pain feels like sharp severe 10/10 pain usually associated with nausea then vomiting after vomiting usually released the pain, patient had this episode once a day and the pain was improved after 1 time vomiting in the waiting room. Patient now has no abdominal pain, no nausea or vomiting while in the emergency department, patient also declined any fever chills, patient admits to smoking marijuana. Normal urination was no dysuria or difficulty breathing, normal bowel movement and normal passing flatus. Patient been having these symptoms intermittently for 1 year, patient has no history of abdominal surgery. Related Data Previous Rx's Medication Instructions Recorded albuterol sulfate 90 mcg/actuation 2 puff INHALATION Q6H PRN #6.7 g 10/01/20 aerosol inhaler albuterol sulfate 90 mcg/actuation 2 puff INHALATION Q4-6H PRN #8.5 g 05/17/21 aerosol inhaler (ProAir HFA) prednisone 20 mg tablet 40 mg PO DAILY #10 tab 05/17/21 albuterol sulfate 90 mcg/actuation 2 puff INHALATION Q4-6H PRN #8.5 g 11/22/21 aerosol inhaler prednisone 50 mg tablet 50 mg PO DAILY #5 tab 11/22/21 omeprazole magnesium 20 mg 20 mg PO BID #20 tab 02/16/22 tablet,delayed release (Prilosec OTC) Allergies Allergy/AdvReac Type Severity Reaction Status Date / Time No Known Allergies Allergy Verified 05/17/21 04:57 Review of Systems Review of Systems All other systems are reviewed and are negative Constitutional: Reports as per HPI and Reports no additional constitutional complaints Eyes: Reports as per HPI and Reports no additional eye complaints Reports system reviewed and no additional complaints, except as documented Cardiovascular: Reports as per HPI and Reports no additional cardiovascular complaints Respiratory: Reports as per HPI and Reports no additional respiratory complaints Gastrointestinal: Reports as per HPI and Reports no additional gastrointestinal complaints Genitourinary: Reports no additional female genitourinary complaints Musculoskeletal: Reports no additional musculoskeletal complaints Skin/Breast: Reports system reviewed and no additional complaints, except as docu Psychiatric: Reports no additional psychiatric complaints Endocrine: Reports no additional endocrine complaints Hematologic/Lymphatic: Reports no additional hematologic/lymphatic complaints Allergic/Immunologic: Reports no additional allergic/immunologic complaints Reports system reviewed and no additional complaints, except as documented and Reports Abnormal speech present [facility] Past Medical History Medical History Asthma No known health problems Social History Social History Substance Use Type: Marijuana Advance Directives: No Advance Directives Information Provided: No Physical Exam ED Vital Signs: Vital Signs - 24 hr 02/16/22 16:56 02/16/22 22:05 Temperature 98.2 F 98.3 F Pulse Rate 62 80 Respiratory Rate 18 16 Blood Pressure 156/84 H 142/71 H Pulse Oximetry 100 99 BMI result Body Mass Index 23.0 Vital signs have been reviewed as appeared to be correct. Blood pressure normal. Heart rate normal. Respiration rate normal. Temperature normal. Oxygen saturation normal. Appearance: Alert. Oriented X3. No acute distress. Head: Normal external exam. Normocephalic. Atraumatic. No Gudino signs noted. No raccoon eyes noted Eyes: PERRLA. EOMI. Conjunctiva and sclera normal. Eyelids normal. ENT: TM's Normal. Pharynx normal. Uvula midline. Moist mucous membranes. No t rismus noted. No drooling noted. No muffled voice noted. Neck: Normal inspection. Neck supple. FROM. No adenopathy. Thyroid Normal. No meningeal signs. No neck mass noted. CVS: Normal heart rate and rhythm. Heart sound normal. No murmurs noted. Pulses normal throughout. Respiratory: No respiratory distress. Painless inspiration. Breath sounds normal. No wheezes/rales/rhonchi noted. Chest nontender. No accessory muscle usage noted or decreased air movement noted. Abdomen: Soft and nontender. Bowel sounds normal in all 4 quadrants. No distention noted. No organomegaly noted. No visible injury noted. Back: No CVA tenderness. Full range of motion noted. Skin: Skin warm and dry. Normal skin color. Normal skin turgor. No rashes/lesions/lacerations noted. Extremities: No lower extremity edema. Extremities exhibit normal range of motion. Extremities nontender. Neuro: Oriented X 3. Cranial nerve exam: II-XII are grossly intact No motor deficit. No sensory deficit. Reflexes normal. Course Course Course Narrative: Assessment and plan. 27-year-old male came in for 1 year history of intermittent abdominal pain, currently patient has no symptoms, patient smokes marijuana on a daily basis which could be cause of the patient's symptoms, patient was instructed to stop smoking marijuana, will prescribe Prilosec, clear diet for next couple days then advance as tolerated if symptoms persist to follow-up with GI. MDM - Abdominal Pain Lab Data Attestation: I reviewed the patient's lab results. Result diagrams: 02/16/22 17:18 02/16/22 17:18 Labs: Lab Results 02/16/22 02/16/22 02/16/22 Range/Units 17:18 17:18 17:18 WBC 9.8 (4.8-10.8) X10*3/uL RBC 4.53 L (4.60-5.80) X10*6/uL Hgb 14.3 (14.0-18.0) g/dl Hct 43.8 (42.0-52.0) % MCV 96.7 (80.0-98.0) fL MCH 31.6 (27.0-33.0) pg MCHC 32.6 (31.0-36.0) g/dl RDW 12.4 (11.0-16.0) % Plt Count 395 (160-400) X10*3/uL MPV 11.5 (9.4-12.4) fL Immature Gran % (Auto) 0.4 (0.0-0.4) % Neut % (Auto) 54.0 (45-73) % Lymph % (Auto) 36.1 (20-40) % [place] % (Auto) 9.0 (2-11) % Eos % (Auto) 0.1 (0-4) % Baso % (Auto) 0.4 (0-2) % Lymph # (Auto) 3.6 (1.2-4.9) X10*3/uL [place] # (Auto) 0.9 (0.1-1.2) X10*3/uL Eos # (Auto) 0.0 (0.0-0.4) X10*3/uL Baso # (Auto) 0.0 (0.0-0.2) X10*3/uL Abs Immat Gran (auto) 0.04 H (0.00-0.03) X10*3/uL Absolute Neuts (auto) 5.3 (2.0-8.3) x10*3/uL Absolute Nucleated RBC 0.000 (0.0-0.012) X10*3/uL Nucleated RBC % (auto) 0.0 (0.0-0.2) /100WBC Sodium 141 (135-145) mmol/L Potassium 4.5 (3.3-5.1) mmol/L Chloride 105 (96-108) mmol/L Carbon Dioxide 28 (22-29) mmol/L Anion Gap 13 (12-20) BUN 10 (9-16) mg/dL Creatinine 0.90 (0.5-1.4) mg/dL Estim Creat Clear Calc 100.9 Estimated GFR > 60 Random Glucose 132 H (60-115) mg/dL Calcium 10.2 (8.4-10.2) mg/dL Total Bilirubin 0.5 (0.0-1.0) mg/dL Direct Bilirubin 0.2 (0.0-0.5) mg/dL AST 59 H (5-37) U/L ALT 45 H (0-40) U/L Alkaline Phosphatase 82 (39-117) U/L Total Protein 8.5 H (6.5-8.0) g/dL Albumin 4.5 (3.5-5.0) g/dL Ethyl Alcohol mg/dL COVID-19 ([facility]A) (Negative) COVID-19 Clin Com Influenza Type A (JERRY) Negative (Negative) Influenza Type B (JERRY) Negative (Negative) Influenza A & B Note See Note 02/16/22 02/16/22 Range/Units 17:18 17:18 WBC (4.8-10.8) X10*3/uL RBC (4.60-5.80) X10*6/uL Hgb (14.0-18.0) g/dl Hct (42.0-52.0) % MCV (80.0-98.0) fL MCH (27.0-33.0) pg MCHC (31.0-36.0) g/dl RDW (11.0-16.0) % Plt Count (160-400) X10*3/uL MPV (9.4-12.4) fL Immature Gran % (Auto) (0.0-0.4) % Neut % (Auto) (45-73) % Lymph % (Auto) (20-40) % [place] % (Auto) (2-11) % Eos % (Auto) (0-4) % Baso % (Auto) (0-2) % Lymph # (Auto) (1.2-4.9) X10*3/uL [place] # (Auto) (0.1-1.2) X10*3/uL Eos # (Auto) (0.0-0.4) X10*3/uL Baso # (Auto) (0.0-0.2) X10*3/uL Abs Immat Gran (auto) (0.00-0.03) X10*3/uL Absolute Neuts (auto) (2.0-8.3) x10*3/uL Absolute Nucleated RBC (0.0-0.012) X10*3/uL Nucleated RBC % (auto) (0.0-0.2) /100WBC Sodium (135-145) mmol/L Potassium (3.3-5.1) mmol/L Chloride (96-108) mmol/L Carbon Dioxide (22-29) mmol/L Anion Gap (12-20) BUN (9-16) mg/dL Creatinine (0.5-1.4) mg/dL Estim Creat Clear Calc Estimated GFR Random Glucose (60-115) mg/dL Calcium (8.4-10.2) mg/dL Total Bilirubin (0.0-1.0) mg/dL Direct Bilirubin (0.0-0.5) mg/dL AST (5-37) U/L ALT (0-40) U/L Alkaline Phosphatase (39-117) U/L Total Protein (6.5-8.0) g/dL Albumin (3.5-5.0) g/dL Ethyl Alcohol < 10 mg/dL COVID-19 (MARYA) Negative (Negative) COVID-19 Clin Com See Note Influenza Type A (JERRY) (Negative) Influenza Type B (JERRY) (Negative) Influenza A & B Note Imaging Data CT scan - abdomen: Attestation: I personally reviewed and interpreted this imaging study as follows: Radiologist's impression: No acute findings in the abdomen or pelvis. No inflammatory changes. ? Visualization of the appendix is limited, though a structure which is likely a normal appendix is seen.? ? Discharge Plan Discharge Clinical Impression: Abdominal pain, Gastritis, Marijuana abuse Patient Disposition: Home, Self-Care Instructions: Gastritis (ED) Additional Instructions: Most of your symptoms is induced by smoking marijuana try to stop smoking marijuana. Prescriptions: New omeprazole magnesium [Prilosec OTC] 20 mg tablet,delayed release (DR/EC) 20 mg PO BID Qty: 20 0RF No Action albuterol sulfate 90 mcg/actuation HFA aerosol inhaler 2 puff inhalation Q6H PRN (Reason: shortness of breath or wheezing) Qty: 6.7 0RF albuterol sulfate [ProAir HFA] 90 mcg/actuation HFA aerosol inhaler 2 puff inhalation Q4-6H PRN (Reason: shortness of breath or wheezing) Qty: 8.5 2RF prednisone 20 mg tablet 40 mg PO DAILY Qty: 10 0RF albuterol sulfate 90 mcg/actuation HFA aerosol inhaler 2 puff inhalation Q4-6H PRN (Reason: shortness of breath or wheezing) Qty: 8.5 1RF prednisone 50 mg tablet 50 mg PO DAILY Qty: 5 0RF Referrals: Sukhwinder Sin MD [Physician] -
[2022-02-16] MEDS: Magnesium Hydrox/Alum Hydrox 30 ML ORAL.SUSP PO (23:22)
[2022-02-16] MEDS: Famotidine 20 MG TABLET PO (23:22)
== END 2022-02-17 00:26 | disposition home or self-care (01) ==
PROVIDERS: Emergency Provider Emergency Medicine
DX: K29.70 Gastritis, unspecified, without bleeding (principal); F12.10 Cannabis abuse, uncomplicated; Z20.822 Contact with and (suspected) exposure to COVID-19
CPT/HCPCS: 74176; 80053; 82077; 82248; 85025; 87502; 87635; 99282; 99284

== ENCOUNTER 2022-06-01 11:37 | Emergency (ER) | payer MEDICAID, SELFPAY ==
[2022-06-01 11:50] VITALS: BP 113/81; PULSE 83; RESP 18; TEMP 36.6; O2SAT 93; BMI 21.6
--- NOTE | 2022-06-01 12:29 | ED.ASTHMA ---
HPI - Asthma General Chief Complaint: Asthma Stated Complaint: asthma, sob Time Seen by Provider: 06/01/22 12:29 Source: patient Mode of arrival: ambulatory Limitations: no limitations History of Present Illness HPI Narrative: 2 days of shortness of breath, described as his asthma getting worse complaint: asthma attack Onset (ago): day(s) Severity: severe Related Data Previous Rx's Medication Instructions Recorded albuterol sulfate 90 mcg/actuation 2 puff inhalation Q6H PRN 10/01/20 aerosol inhaler shortness of breath or wheezing #6.7 grams albuterol sulfate 90 mcg/actuation 2 puff inhalation Q4-6H PRN 05/17/21 aerosol inhaler (ProAir HFA) shortness of breath or wheezing #8.5 grams prednisone 20 mg tablet 40 mg PO DAILY #10 tabs 05/17/21 albuterol sulfate 90 mcg/actuation 2 puff inhalation Q4-6H PRN 11/22/21 aerosol inhaler shortness of breath or wheezing #8.5 grams prednisone 50 mg tablet 50 mg PO DAILY #5 tabs 11/22/21 omeprazole magnesium 20 mg 20 mg PO BID #20 tabs 02/16/22 tablet,delayed release (Prilosec OTC) albuterol sulfate 90 mcg/actuation 2 puff inhalation 6XD PRN 06/01/22 aerosol inhaler shortness of breath or wheezing #8.5 grams prednisone 20 mg tablet 60 mg PO DAILY #12 tabs 06/01/22 Allergies Allergy/AdvReac Type Severity Reaction Status Date / Time No Known Allergies Allergy Verified 05/17/21 04:57 Review of Systems Constitutional: Constitutional: Reports no additional constitutional complaints Eyes: Eyes: Reports no additional eye complaints ENT: Denies dizziness Cardiovascular: Cardiovascular: Reports no additional cardiovascular complaints Respiratory: Respiratory: Reports as per HPI Gastrointestinal: Gastrointestinal: Reports no additional gastrointestinal complaints Musculoskeletal: Musculoskeletal: Reports no additional musculoskeletal complaints Integumentary/Breasts: Skin/Breast: Denies rash Neurologic: Reports system reviewed and no additional complaints, except as documented, Denies dizziness and Denies Sensory deficit (Neuro) Psychiatric: Psychiatric: Denies anxiety PMFSH Past Medical History Medical History Asthma No known health problems Social History Social History Patient Tobacco Use Status: Never used Tobacco Use of substances other than those prescribed or required for medical reasons: No Substance Use Type: Marijuana Any prior treatment program specific to substance use: No Advance Directives: No Advance Directives Information Provided: No Physical Exam Vital Signs: Vital Signs: Last Vital Signs Temp 99.1 F 06/01/22 12:35 Pulse 79 06/01/22 13:01 Resp 18 06/01/22 13:01 BP 153/110 H 06/01/22 12:35 Pulse Ox 97 06/01/22 12:35 O2 Del Method 06/01/22 12:35 BMI result Body Mass Index 21.6 Const: Other: thin male talking in short sentences, Nutritional Appearance: average body habitus Orientation/consciousness: oriented to person and patient oriented x3 Limitations: no limitations HEENT: Head: Yes normal to inspection Ears: external ears normal General nose exam: Normal external nose present Mouth: Normal oral and palatal mucosa present and oropharynx normal Throat: Yes posterior oropharynx normal Eyes: General: appearance normal, both eyes and all related structures Neck: Other: supple, retractions suprasternally Chest: Chest palpation & inspection: normal inspection of the chest Resp: Other: tight diffuse wheezing Cardio: Jugular venous distension: no JVD Rate: regular rate Rhythm: regular rhythm Heart sounds: S1 normal heart sound present and S2 normal heart sound present GI: Inspection: Yes normal to inspection Palpation (GI): Soft to palpation, nontender and No hepatosplenomegaly present Auscultation: normal bowel sounds : General: Yes no CVA tenderness Back/Spine/Pelvis: Back: no CVA tenderness Skin: General skin exam: no rashes or lesions noted Neuro: General: oriented to person and patient oriented x3 Cranial nerves: Yes CN's II-XII intact bilaterally Motor exam (neuro): 5/5 motor strength present throughout Sensory Exam: No Sensory deficit (Neuro) Extrem: General: Yes normal to inspection Psych: Appearance: grossly normal Course Reevaluation(s) Reevaluation #1: breathing better will give another treatment Time: 12:58 Reevaluation #2: clear lungs no retractions will dc on albuterol and prednisone Time: 15:04 Discharge Plan Discharge Clinical Impression: Asthma with acute exacerbation Patient Disposition: Home, Self-Care Instructions: Asthma (ED) Prescriptions: New prednisone 20 mg tablet 60 mg PO DAILY Qty: 12 0RF albuterol sulfate 90 mcg/actuation HFA aerosol inhaler 2 puff inhalation 6XD PRN (Reason: shortness of breath or wheezing) Qty: 8.5 0RF No Action albuterol sulfate 90 mcg/actuation HFA aerosol inhaler 2 puff inhalation Q6H PRN (Reason: shortness of breath or wheezing) Qty: 6.7 0RF albuterol sulfate [ProAir HFA] 90 mcg/actuation HFA aerosol inhaler 2 puff inhalation Q4-6H PRN (Reason: shortness of breath or wheezing) Qty: 8.5 2RF prednisone 20 mg tablet 40 mg PO DAILY Qty: 10 0RF albuterol sulfate 90 mcg/actuation HFA aerosol inhaler 2 puff inhalation Q4-6H PRN (Reason: shortness of breath or wheezing) Qty: 8.5 1RF prednisone 50 mg tablet 50 mg PO DAILY Qty: 5 0RF omeprazole magnesium [Prilosec OTC] 20 mg tablet,delayed release (DR/EC) 20 mg PO BID Qty: 20 0RF Referrals: Physician,None [Primary Care Provider] - 1 week
[2022-06-01 12:35] VITALS: BP 153/110; PULSE 93; RESP 20; TEMP 37.3; O2SAT 97
[2022-06-01] MEDS: predniSONE 20 MG TABLET 60 MG PO (12:36)
[2022-06-01] MEDS: Albuterol/Iprat 2.5/0.5MG 3 ML AMPUL.NEB INHALE (12:43)
[2022-06-01 12:44] VITALS: PULSE 102; RESP 26; O2SAT 100
[2022-06-01] MEDS: methylPREDNISolone Sod Succ 125 MG/2 ML VIAL IVPUSH (12:46)
--- NOTE | 2022-06-01 12:50 | PC.NURSE ---
pt unable to tolerate the po prednisone, pt spit them out, iv placed and solu-medro given instead. pt in bed with audible wheezing, ls wheezing through out and tight , speaking in few words sentences, visible clavicle retractions, breathing about 24 per min, but sating well at 96%, pt is reporting chest tightness
[2022-06-01 13:01] VITALS: PULSE 79; RESP 18; O2SAT 99
[2022-06-01] MEDS: Albuterol Sulfate (0.083%) 2.5 MG/3 ML VIAL.NEB INHALE (13:01)
[2022-06-01 15:28] VITALS: BP 133/40; PULSE 78; RESP 18; O2SAT 98
== END 2022-06-01 15:29 | disposition home or self-care (01) ==
PROVIDERS: Emergency Provider Emergency Medicine
DX: J45.901 Unspecified asthma with (acute) exacerbation (principal); R06.02 Shortness of breath; Z79.899 Other long term (current) drug therapy
CPT/HCPCS: 96374; 99284; J2930

== ENCOUNTER 2022-06-27 22:05 | Emergency (ER) | payer MEDICAID, SELFPAY ==
--- NOTE | ~2022-06-27 | XR_ITS ---
EXAMINATION: XR CHEST CLINICAL INFORMATION: Asthma. COMPARISON: Chest x-ray 11/22/2021 TECHNIQUE: Frontal view of the chest was obtained. FINDINGS: No significant abnormality is noted involving the heart, lungs, mediastinum, bony thorax or soft tissues. XR/XR chest 1V IMPRESSION: Unremarkable examination.
[2022-06-27 23:12] VITALS: BP 120/78; PULSE 87; RESP 20; TEMP 36.8; O2SAT 93; BMI 21.6
[2022-06-27 23:47] LABS: COVID-19 Test Negative (Negative); IDNOW Serial# 16C4AD1C
[2022-06-28 03:48] VITALS: BP 103/71; PULSE 76; RESP 20; O2SAT 94
--- NOTE | 2022-06-28 04:39 | ED.ASTHMA ---
HPI - Asthma General Chief Complaint: Asthma Stated Complaint: asthma SOB Time Seen by Provider: 06/28/22 04:39 Source: patient Mode of arrival: ambulatory Limitations: no limitations History of Present Illness HPI Narrative: Patient history of asthma been having increased shortness with wheezing for last couple of months ran out of his inhaler 2 days ago coughing mostly dry occasion with Toprol and phlegm no chest pain no fever or chills Related Data Previous Rx's Medication Instructions Recorded albuterol sulfate 90 mcg/actuation 2 puff inhalation Q6H PRN 10/01/20 aerosol inhaler shortness of breath or wheezing #6.7 grams albuterol sulfate 90 mcg/actuation 2 puff inhalation Q4-6H PRN 05/17/21 aerosol inhaler (ProAir HFA) shortness of breath or wheezing #8.5 grams prednisone 20 mg tablet 40 mg PO DAILY #10 tabs 05/17/21 albuterol sulfate 90 mcg/actuation 2 puff inhalation Q4-6H PRN 11/22/21 aerosol inhaler shortness of breath or wheezing #8.5 grams prednisone 50 mg tablet 50 mg PO DAILY #5 tabs 11/22/21 omeprazole magnesium 20 mg 20 mg PO BID #20 tabs 02/16/22 tablet,delayed release (Prilosec OTC) albuterol sulfate 90 mcg/actuation 2 puff inhalation 6XD PRN 06/01/22 aerosol inhaler shortness of breath or wheezing #8.5 grams prednisone 20 mg tablet 60 mg PO DAILY #12 tabs 06/01/22 albuterol sulfate 90 mcg/actuation 2 puff inhalation Q4-6H PRN 06/28/22 aerosol inhaler (ProAir HFA) Wheezing #8.5 grams prednisone 20 mg tablet 40 mg PO DAILY #10 tabs 06/28/22 Allergies Allergy/AdvReac Type Severity Reaction Status Date / Time No Known Allergies Allergy Verified 05/17/21 04:57 Review of Systems Review of Systems: Yes all other systems are reviewed and are negative PMFSH Past Medical History Medical History Asthma No known health problems Social History Social History Patient Tobacco Use Status: Never used Tobacco Substance Use Type: Marijuana Advance Directives: No Physical Exam Vital Signs: Vital Signs: Last Vital Signs Temp 98.3 F 06/27/22 23:12 Pulse 72 06/28/22 05:02 Resp 18 06/28/22 05:02 BP 103/71 06/28/22 03:48 Pulse Ox 94 06/28/22 03:48 O2 Del Method 06/28/22 03:48 BMI result Body Mass Index 21.6 Appearance: Alert. Oriented X3. No acute distress. Eyes: PERRLA, No Nystagmus ENT: Pharynx normal. Oral Mucosa moist Neck: Normal inspection. Neck supple. CVS: Normal heart rate and rhythm. Pulses normal. Respiratory: No respiratory distress. Equal air entry bilateral, bilateral wheezing Abdomen: Soft and nontender. Bowel sounds are present, no mass palpable, no CVA tenderness Skin: Skin warm and dry. Normal skin color. Normal skin turgor. Extremities: No lower extremity edema. No calf tenderness Neuro: Oriented X 3. No motor deficit. No sensory deficit.No cerebellar signs , cranial nerves II-XII intact MDM - Asthma MDM Narrative Medical decision making narrative: Patient feeling better after nebulizing treatment and Decadron will discharge patient home on add prednisone and albuterol inhaler patient is saturating 94% at room air Differential Diagnosis Differential diagnosis: Likely Acute exacerbation Lab Data Attestation: I reviewed the patient's lab results. Labs: Lab Results 06/27/22 Range/Units 23:18 COVID-19 ([facility]A) Negative (Negative) COVID-19 Clin Com See Note Discharge Plan Discharge Clinical Impression: Asthma with acute exacerbation Patient Disposition: Home, Self-Care Instructions: Asthma (ED) Additional Instructions: Take your inhaler as advised Prednisone as prescribed Prescriptions: New prednisone 20 mg tablet 40 mg PO DAILY Qty: 10 0RF albuterol sulfate [ProAir HFA] 90 mcg/actuation HFA aerosol inhaler 2 puff inhalation Q4-6H PRN (Reason: Wheezing) Qty: 8.5 3RF No Action albuterol sulfate 90 mcg/actuation HFA aerosol inhaler 2 puff inhalation Q6H PRN (Reason: shortness of breath or wheezing) Qty: 6.7 0RF albuterol sulfate [ProAir HFA] 90 mcg/actuation HFA aerosol inhaler 2 puff inhalation Q4-6H PRN (Reason: shortness of breath or wheezing) Qty: 8.5 2RF prednisone 20 mg tablet 40 mg PO DAILY Qty: 10 0RF albuterol sulfate 90 mcg/actuation HFA aerosol inhaler 2 puff inhalation Q4-6H PRN (Reason: shortness of breath or wheezing) Qty: 8.5 1RF prednisone 50 mg tablet 50 mg PO DAILY Qty: 5 0RF omeprazole magnesium [Prilosec OTC] 20 mg tablet,delayed release (DR/EC) 20 mg PO BID Qty: 20 0RF prednisone 20 mg tablet 60 mg PO DAILY Qty: 12 0RF albuterol sulfate 90 mcg/actuation HFA aerosol inhaler 2 puff inhalation 6XD PRN (Reason: shortness of breath or wheezing) Qty: 8.5 0RF
[2022-06-28] MEDS: dexAMETHasone 2 MG TABLET 10 MG PO (04:52)
[2022-06-28] MEDS: Albuterol Sulfate 7.5 MG, Albuterol/Iprat 2.5/0.5MG 3 ML 3 ML INHALE (04:59)
[2022-06-28 05:02] VITALS: PULSE 72; RESP 18; O2SAT 92
== END 2022-06-28 05:56 | disposition home or self-care (01) ==
PROVIDERS: Emergency Provider Internal Medicine
DX: J45.901 Unspecified asthma with (acute) exacerbation (principal); R06.02 Shortness of breath; Z20.822 Contact with and (suspected) exposure to COVID-19
CPT/HCPCS: 71045; 87635; 94640; 99283; 99284; J8540

== ENCOUNTER 2022-07-18 20:53 | Emergency (ER) | payer MEDICAID, SELFPAY ==
--- NOTE | ~2022-07-18 | XR_ITS ---
EXAMINATION: XR CHEST CLINICAL INFORMATION: Shortness of breath with wheezing COMPARISON: 06/27/2022 TECHNIQUE: 2 views of the chest were obtained. FINDINGS: No significant abnormality is noted involving the heart, lungs, mediastinum, bony thorax or soft tissues. XR/XR chest 2V IMPRESSION: Unremarkable examination.
[2022-07-18 21:08] VITALS: BP 149/90; PULSE 86; RESP 22; TEMP 37; O2SAT 94; BMI 21.6
[2022-07-18 22:01] LABS: COVID-19 Test Negative (Negative)
[2022-07-19] VITALS (7 sets, daily range): BP systolic 102–150; BP diastolic 59–96; PULSE 79–110; RESP 8–24; TEMP 36.4–36.6; O2SAT 96–100
[2022-07-19] MEDS: Albuterol Sulfate (0.083%) 2.5 MG/3 ML VIAL.NEB INHALE (01:16)
--- NOTE | 2022-07-19 01:16 | PC.NURSE ---
Patient alerted staff that his asthma became acutely worse. Patient RR 30, shallow resp, audible wheezing. Neb started, To room 5.
--- OUTSIDE RECORDS SUMMARY | 2022-07-19 01:18 | XMS_ITS | Continuity of Care Document ---
:1995 Author Organization [facility] Address [address] [place] [address]- Care Team Providers Name Role Phone Not on Staff, PCP Primary Care Physician Unavailable [place] [facility] [place]): 11/16/20 - 11/17/[address] [address]- Encounter Diagnosis Asthma attack (Final) - 11/17/20 Discharge Disposition: A-D/C Home Attending Physician: Rogelio Buckley MD Admitting Physician: Rogelio Buckley MD Referring Physician: Not on Staff, Referring MD Allergies, Adverse Reactions, Alerts Substance Reaction Severity Status NKA Active Medications albuterol 90 mcg/inh inhalation powder 2 puffs, Inhalation, Every 6 hours, PRN Wheezing/Shortness of Breath, # 1 each, 0 Refills, Maintenance, 11/17/20 3:30:00 EST, Powder, [id number], Partial fill upon patient request if the prescription is for a schedule II opioid drug., 2 puffs... Start Date: 11/17/20 Stop Date: 12/17/20 Status: OrderedpredniSONE 20 mg oral tablet 2 tablet = 40 mg, By Mouth, Daily, for 5 days, # 10 tablet, 0 Refills, Acute 11/22/20 3:30:00 EST, 11/17/20 3:30:00 EST, Tablet, [id number], Partial fill upon patient request if the prescription is for a schedule II opioid drug. Start Date: 11/17/20 Stop Date: 11/22/20 Status: Ordered Results Radiology Reports Exam Date Time Procedure Performing Provider Status 11/17/20 12:55 AM Chest Portable Syeda Nieves ([facility] ed) Notes:(Chest Portable) Reason For Exam: Shortness of BreathRESULT: Chest Portable Chest Portable 12:42 AM 11/17/2020. Hx of Present Illness: pt presents to ED with acute asthma exacerbation [id number] in triage, not moving much air, full field wheezing. Pt pulled back to c21, provider at RT at bedside.; Reason: Shortnessof Breath; Clinical Question(s): CHF COMPARISON: None. FINDINGS: LINES AND TUBES: None. LUNGS AND PLEURA: Clear lungs. Normal pulmonary vascularity. No pleural effusion. No pneumothorax. HEART, MEDIASTINUM AND AUBREY: Heart is normal in size. Normal upper mediastinal and hilar contour. BONES AND SOFT TISSUES: No acute abnormality. IMPRESSION: No acute abnormality. I have personally reviewed the images and I agree with this report. WSN: [id number] Ordering Physician: Rogelio Buckley Dictated By: Jon Rosenbaum MD Dictated Date/Time: 11/17/20 7:41 am Reviewed By: Eva Pedersen MD Signed By: Eva Pedersen MD Signed Date/Time: 11/17/20 7:46 am Transcribed By: KATIE Transcribed Date/Time: 11/17/20 7:33 am Vital Signs Most recent to oldest 1 2 3 [Reference Range]: Oxygen Saturation [94-100 %] 99 % 95 % 89 % (11/17/20 3:14 AM) (11/17/20 1:23 AM) *L* (11/17/20 12:00 A M) Pulse Rate [55-90 bpm] 55 bpm 126 bpm 120 bpm (11/17/20 3:14 AM) *H* *H* (11/17/20 1:23 AM) (11/17/20 12:00 AM) Blood Pressure [90-138/55-84 136/52 mm Hg 124/67 mm Hg mm Hg] (11/17/20 3:14 AM) (11/17/20 1:23 AM) Respiratory Rate [16-30 17 br/min 26 br/min 22 br/mi n br/min] (11/17/20 3:14 AM) (11/17/20 1:23 AM) (11/17/20 12: 00 AM) Temperature [96.8-100.4 DegF] 97.3 DegF 97.9 DegF (11/17/20 3:14 AM) (11/17/20 1:23 AM) Mode of Delivery (Oxygen) Room air Room air Room a ir (11/17/20 3:14 AM) (11/17/20 1:23 AM) (11/17/20 12: 00 AM) Blood pressure sites Arm, right Arm, left (11/17/20 3:14 AM) (11/17/20 1:23 AM) Temperature Route Oral Oral (11/17/20 3:14 AM) (11/17/20 1:23 AM)
--- NOTE | 2022-07-19 01:27 | ED.ASTHMA ---
HPI - Asthma General Chief Complaint: Asthma Stated Complaint: asthma, difficulty breathing Time Seen by Provider: 07/19/22 01:27 Source: patient Mode of arrival: ambulatory Limitations: no limitations History of Present Illness HPI Narrative: Patient history of asthma been wheezing for last 3 - 4 days was seen in the ED a few days ago for same increased dry cough no fever no chills no chest pain patient is saturating 90% at room air on arrival Related Data Previous Rx's Medication Instructions Recorded albuterol sulfate 90 mcg/actuation 2 puff inhalation Q6H PRN 10/01/20 aerosol inhaler shortness of breath or wheezing #6.7 grams albuterol sulfate 90 mcg/actuation 2 puff inhalation Q4-6H PRN 05/17/21 aerosol inhaler (ProAir HFA) shortness of breath or wheezing #8.5 grams prednisone 20 mg tablet 40 mg PO DAILY #10 tabs 05/17/21 albuterol sulfate 90 mcg/actuation 2 puff inhalation Q4-6H PRN 11/22/21 aerosol inhaler shortness of breath or wheezing #8.5 grams prednisone 50 mg tablet 50 mg PO DAILY #5 tabs 11/22/21 omeprazole magnesium 20 mg 20 mg PO BID #20 tabs 02/16/22 tablet,delayed release (Prilosec OTC) albuterol sulfate 90 mcg/actuation 2 puff inhalation 6XD PRN 06/01/22 aerosol inhaler shortness of breath or wheezing #8.5 grams prednisone 20 mg tablet 60 mg PO DAILY #12 tabs 06/01/22 albuterol sulfate 90 mcg/actuation 2 puff inhalation Q4-6H PRN 06/28/22 aerosol inhaler (ProAir HFA) Wheezing #8.5 grams prednisone 20 mg tablet 40 mg PO DAILY #10 tabs 06/28/22 albuterol sulfate 90 mcg/actuation 2 puff inhalation Q4-6H PRN 07/19/22 aerosol inhaler (ProAir HFA) shortness of breath or wheezing #8.5 grams prednisone 20 mg tablet 40 mg PO DAILY #10 tabs 07/19/22 Allergies Allergy/AdvReac Type Severity Reaction Status Date / Time No Known Allergies Allergy Verified 07/18/22 21:10 Review of Systems Review of Systems: Yes all other systems are reviewed and are negative PMFSH Past Medical History Medical History Asthma No known health problems Social History Social History Patient Tobacco Use Status: Never used Tobacco Substance Use Type: Marijuana Advance Directives: No Advance Directives Information Provided: Yes Physical Exam Vital Signs: Vital Signs: Last Vital Signs Temp 97.5 F 07/19/22 04:33 Pulse 90 07/19/22 04:33 Resp 17 07/19/22 04:33 BP 118/59 L 07/19/22 04:33 Pulse Ox 100 07/19/22 04:33 O2 Del Method 07/19/22 04:33 O2 Flow Rate 3 07/19/22 04:33 BMI result Body Mass Index 21.6 Appearance: Alert. Oriented X3. In moderate distress Eyes: PERRLA, No Nystagmus ENT: Pharynx normal. Oral Mucosa moist Neck: Normal inspection. Neck supple. CVS: Normal heart rate and rhythm. Pulses normal. Respiratory: Moderate respiratory distress. Equal air entry bilateral, bilateral wheezing Abdomen: Soft and nontender. Bowel sounds are present, Skin: Skin warm and dry. Normal skin color. Normal skin turgor. Extremities: No lower extremity edema. No calf tenderness Neuro: Oriented X 3. No motor deficit. MDM - Asthma MDM Narrative Medical decision making narrative: Patient feeling much better now after 2 hour long nebulizing treatment saturating 90-93% level we will discharge patient prednisone and inhaler advised to follow with PCP/specialist Medical Records Attestation: I reviewed the patient's medical records. Lab Data Attestation: I reviewed the patient's lab results. Labs: Lab Results 07/18/22 Range/Units 21:12 COVID-19 ([facility]) Negative (Negative) COVID-19 Clin Com See Note Discharge Plan Discharge Clinical Impression: Asthma with acute exacerbation Patient Disposition: Home, Self-Care Instructions: Asthma (ED) Additional Instructions: Use your inhaler as prescribed along with prednisone tablets follow up with your lung specialist/PCP Prescriptions: New prednisone 20 mg tablet 40 mg PO DAILY Qty: 10 0RF albuterol sulfate [ProAir HFA] 90 mcg/actuation HFA aerosol inhaler 2 puff inhalation Q4-6H PRN (Reason: shortness of breath or wheezing) Qty: 8.5 2RF No Action albuterol sulfate 90 mcg/actuation HFA aerosol inhaler 2 puff inhalation Q6H PRN (Reason: shortness of breath or wheezing) Qty: 6.7 0RF albuterol sulfate [ProAir HFA] 90 mcg/actuation HFA aerosol inhaler 2 puff inhalation Q4-6H PRN (Reason: shortness of breath or wheezing) Qty: 8.5 2RF prednisone 20 mg tablet 40 mg PO DAILY Qty: 10 0RF albuterol sulfate 90 mcg/actuation HFA aerosol inhaler 2 puff inhalation Q4-6H PRN (Reason: shortness of breath or wheezing) Qty: 8.5 1RF prednisone 50 mg tablet 50 mg PO DAILY Qty: 5 0RF prednisone 20 mg tablet 40 mg PO DAILY Qty: 10 0RF albuterol sulfate [ProAir HFA] 90 mcg/actuation HFA aerosol inhaler 2 puff inhalation Q4-6H PRN (Reason: Wheezing) Qty: 8.5 3RF omeprazole magnesium [Prilosec OTC] 20 mg tablet,delayed release (DR/EC) 20 mg PO BID Qty: 20 0RF prednisone 20 mg tablet 60 mg PO DAILY Qty: 12 0RF albuterol sulfate 90 mcg/actuation HFA aerosol inhaler 2 puff inhalation 6XD PRN (Reason: shortness of breath or wheezing) Qty: 8.5 0RF
--- NOTE | 2022-07-19 01:36 | PC.NURSE ---
pt lung sounds wheezing bilaterally, pt also in tripod position. Pt recieved one duoneb with no relief, placed pt on 3L nasal cannula, now satting 96%. Dr. Davis aware
[2022-07-19] MEDS: Albuterol Sulfate 5 MG, Albuterol Sulfate (0.083%) 2.5 MG 7.5 MG INHALE ×2 (01:41→04:21)
[2022-07-19] MEDS: Magnesium Sulfate/H2O 2 GM/50 ML PIGGYBACK IV (01:45)
[2022-07-19] MEDS: methylPREDNISolone Sod Succ 125 MG/2 ML VIAL IVPUSH (01:45)
[2022-07-19] MEDS: 0.9 % Sodium Chloride 1,000 ML 999 ML IV (02:26)
== END 2022-07-19 06:00 | disposition home or self-care (01) ==
PROVIDERS: Emergency Provider Internal Medicine
DX: J45.901 Unspecified asthma with (acute) exacerbation (principal); R06.02 Shortness of breath; Z20.822 Contact with and (suspected) exposure to COVID-19; Z79.899 Other long term (current) drug therapy
CPT/HCPCS: 71046; 87635; 94640; 96361; 96365; 96375; 99285; J2930; J3475

== ENCOUNTER 2022-08-08 22:45 | Inpatient (IN) | payer MEDICAID, SELFPAY ==
--- NOTE | ~2022-08-08 | XR_ITS ---
EXAMINATION: XR CHEST CLINICAL INFORMATION: Asthma exacerbation. COMPARISON: Chest radiograph 07/18/2022. TECHNIQUE: Frontal view of the chest was obtained. FINDINGS: Normal appearance of the cardiomediastinal silhouette. Mild interstitial prominence but no focal airspace opacities, pleural effusions or pneumothorax. No acute osseous abnormalities. The visualized upper abdomen is within normal limits. XR/XR chest 1V IMPRESSION: Mild interstitial prominence, increased when compared to 07/18/2022, could be associated with asthma, bronchitis, reactive airways disease or atypical viral infections. No focal consolidation.
[2022-08-08 23:53] VITALS: BP 124/91; PULSE 84; RESP 16; TEMP 36.6; O2SAT 90; BMI 21.6
[2022-08-09] VITALS (11 sets, daily range): BP systolic 106–141; BP diastolic 60–84; PULSE 76–102; RESP 10–18; TEMP 36.4–36.9; O2SAT 93–99
--- NOTE | 2022-08-09 00:10 | ED_ITS ---
HPI - SOB/Dyspnea General Chief Complaint: Upper Respiratory Symptoms Stated Complaint: asthma Time Seen by Provider: 08/09/22 00:04 Source: patient Mode of arrival: ambulatory Limitations: no limitations History of Present Illness HPI Narrative: This is a 27 years old patient with history of asthma presented to the emergency room complaining of shortness of breath and wheezing, he states that he ran out of the inhaler, denies any fever chills MD elicited complaint: shortness of breath Pertinent past history: asthma Onset (ago): day(s) (3) Timing: constant Severity: moderate Exacerbating factors: nothing Relieving factors: nothing Treatment prior to arrival: none Related Data Previous Rx's Medication Instructions Recorded albuterol sulfate 90 mcg/actuation 2 puff inhalation Q6H PRN 10/01/20 aerosol inhaler shortness of breath or wheezing #6.7 grams albuterol sulfate 90 mcg/actuation 2 puff inhalation Q4-6H PRN 05/17/21 aerosol inhaler (ProAir HFA) shortness of breath or wheezing #8.5 grams prednisone 20 mg tablet 40 mg PO DAILY #10 tabs 05/17/21 albuterol sulfate 90 mcg/actuation 2 puff inhalation Q4-6H PRN 11/22/21 aerosol inhaler shortness of breath or wheezing #8.5 grams prednisone 50 mg tablet 50 mg PO DAILY #5 tabs 11/22/21 omeprazole magnesium 20 mg 20 mg PO BID #20 tabs 02/16/22 tablet,delayed release (Prilosec OTC) albuterol sulfate 90 mcg/actuation 2 puff inhalation 6XD PRN 06/01/22 aerosol inhaler shortness of breath or wheezing #8.5 grams prednisone 20 mg tablet 60 mg PO DAILY #12 tabs 06/01/22 albuterol sulfate 90 mcg/actuation 2 puff inhalation Q4-6H PRN 06/28/22 aerosol inhaler (ProAir HFA) Wheezing #8.5 grams prednisone 20 mg tablet 40 mg PO DAILY #10 tabs 06/28/22 albuterol sulfate 90 mcg/actuation 2 puff inhalation Q4-6H PRN 07/19/22 aerosol inhaler (ProAir HFA) shortness of breath or wheezing #8.5 grams prednisone 20 mg tablet 40 mg PO DAILY #10 tabs 07/19/22 albuterol sulfate 90 mcg/actuation 1 inh inhalation QID PRN shortness 08/09/22 aerosol inhaler of breath or wheezing #8.5 grams prednisone 20 mg tablet 60 mg PO DAILY #12 tabs 08/09/22 Allergies Allergy/AdvReac Type Severity Reaction Status Date / Time No Known Allergies Allergy Verified 07/18/22 21:10 Review of Systems Review of Systems: Yes all other systems are reviewed and are negative Eyes: Eyes: Reports no additional eye complaints Cardiovascular: Cardiovascular: Reports no additional cardiovascular complaints Respiratory: Respiratory: Reports wheezing Musculoskeletal: Musculoskeletal: Reports no additional musculoskeletal complaints Allergic/Immunologic: Allergic/Immunologic: Reports wheezing [facility] Past Medical History [facility] Narrative: Asthma Medical History Asthma No known health problems Social History Social History Patient Tobacco Use Status: Never used Tobacco Smoked in Last 30 Days: No Use of substances other than those prescribed or required for medical reasons: No Substance Use Type: Marijuana Advance Directives: No Physical Exam Vital Signs: Vital Signs: Last Vital Signs Temp 97.9 F 08/08/22 23:53 Pulse 76 08/09/22 00:29 Resp 18 08/09/22 00:29 BP 124/91 H 08/08/22 23:53 Pulse Ox 90 L 08/08/22 23:53 O2 Del Method 08/08/22 23:53 BMI result Body Mass Index 21.6 Const: General: cooperative Nutritional Appearance: average body habitus Orientation/consciousness: patient oriented x3 HEENT: Head: Yes normal to inspection General nose exam: Normal external nose present Face and sinus: Yes normal facial exam Mouth: Normal oral and palatal mucosa present Throat: Yes posterior oropharynx normal Neck: Neck: Yes normal visual inspection Chest: Chest palpation & inspection: normal inspection of the chest Resp: Effort & Inspection: audible wheezes Auscultation: wheezes Cardio: Jugular venous distension: no JVD Rate: regular rate Rhythm: regular rhythm GI: Inspection: Yes normal to inspection Palpation (GI): Soft to palpation, not firm and nontender Auscultation: normal bowel sounds Skin: General skin exam: no rashes or lesions noted and elasticity normal Lesions: no lesions Rashes: no rashes Neuro: General: patient oriented x3 Cranial nerves: Yes CN's II-XII intact bilaterally Gait exam (Neuro): Normal gait present Course Reevaluation(s) Reevaluation #1: Reexamined he his feeling better his 02 SAt is better Reevaluation #2: Reexamine his sat is now again 90% at this point will admit him for observation Medications Administered Discontinued Medications Generic Name Dose Route Start Last Admin Trade Name Bull PRN Reason Stop Dose Admin Albuterol Sulfate 7.5 mg/ 10 mg 08/09/22 00:06 08/09/22 00:27 Albuterol Sulfate 2.5 mg INHALE 08/09/22 00:07 10 mg ONCE ONE Administration Methylprednisolone Sodium Succinate 125 mg 08/09/22 00:06 08/09/22 00:23 Methylprednisolone Sod Succ 125 Mg/2 Ml Vial IVPUSH 08/09/22 00:07 125 mg ONCE ONE Administration MDM - SOB/Dyspnea Lab Data Result diagrams: 08/09/22 00:37 08/09/22 00:37 Labs: Lab Results 08/09/22 Range/Units 00:37 Sodium 140 (135-145) mmol/L Potassium 4.1 (3.3-5.1) mmol/L Chloride 101 (96-108) mmol/L Carbon Dioxide 26 (22-29) mmol/L Anion Gap 17 (12-20) BUN 19 H D (9-16) mg/dL Creatinine 0.84 (0.5-1.4) mg/dL Estim Creat Clear Calc 112.1 Estimated GFR > 60 Random Glucose 114 (60-115) mg/dL Calcium 9.1 D (8.4-10.2) mg/dL Total Bilirubin 1.5 H (0.0-1.0) mg/dL AST 12 D (5-37) U/L ALT 13 (0-40) U/L Alkaline Phosphatase 63 D (39-117) U/L Total Protein 6.9 (6.5-8.0) g/dL Albumin 4.1 (3.5-5.0) g/dL Discharge Plan Discharge Clinical Impression: Asthma with acute exacerbation Patient Disposition: Admitted As Inpatient
[2022-08-09] MEDS: methylPREDNISolone Sod Succ 125 MG/2 ML VIAL IVPUSH (00:23)
[2022-08-09] MEDS: Albuterol Sulfate 7.5 MG, Albuterol Sulfate (0.083%) 2.5 MG 10 MG INHALE (00:27)
[2022-08-09 00:41] LABS: Basophils Absolute Auto 0.1 X10*3/uL (0.0-0.2); Eosinophils Absolute Auto 1.3 X10*3/uL (0.0-0.4); Hematocrit 39.4 % (42.0-52.0); Hemoglobin 13.6 g/dl (14.0-18.0); Imm Gran Abs Auto 0.02 X10*3/uL (0.00-0.03); Imm Gran Pct Auto 0.2 % (0.0-0.4); Lymphocytes Absolute Auto 2.7 X10*3/uL (1.2-4.9); Lymphocytes Percent Auto 29.9 % (20-40); MANUAL DIFF FLAG NO; Mean Corpuscular HGB Conc 34.5 g/dl (31.0-36.0); Mean Corpuscular Hemoglobin 32.7 pg (27.0-33.0); Mean Corpuscular Volume 94.7 fL (80.0-98.0); Mean Platelet Volume 11.5 fL (9.4-12.4); Monocytes Absolute Auto 1.1 X10*3/uL (0.1-1.2); Monocytes Percent Auto 12.1 % (2-11); Neutrophils Absolute Auto 3.8 x10*3/uL (2.0-8.3); Neutrophils Percent Auto 42.8 % (45-73); Platelet Count 261 X10*3/uL (160-400); Red Blood Count 4.16 X10*6/uL (4.60-5.80); Red Cell Distribution Width 12.1 % (11.0-16.0); White Blood Count 8.9 X10*3/uL (4.8-10.8)
[2022-08-09 00:58] LABS: Alanine Aminotransferase 13 U/L (0-40); Albumin Level 4.1 g/dL (3.5-5.0); Alkaline Phosphatase 63 U/L (39-117); Anion Gap 17 (12-20); Aspartate Amino Transferase 12 U/L (5-37); Bilirubin Total 1.5 mg/dL (0.0-1.0); Blood Urea Nitrogen 19 mg/dL (9-16); Calcium 9.1 mg/dL (8.4-10.2); Carbon Dioxide 26 mmol/L (22-29); Chloride 101 mmol/L (96-108); Creatinine Clr Calc Pharmacy 112.1; Estimated Glomerular Filt Rate > 60; Glucose Random 114 mg/dL (60-115); Potassium 4.1 mmol/L (3.3-5.1); Sodium 140 mmol/L (135-145); Total Protein 6.9 g/dL (6.5-8.0)
--- NOTE | 2022-08-09 01:30 | PC.NURSE ---
pt SpO2 89% RA. Spoke with Dr. Cox regarding this. Dr Cox instructed this RN to place pt on 2L NC. SpO2 94% on 2LPM
[2022-08-09] MEDS: Magnesium Sulfate/H2O 2 GM/50 ML PIGGYBACK IV (01:46)
--- NOTE | 2022-08-09 02:21 | PM.IMHP ---
History of Present Illness Date of Service: 08/09/22 Chief Complaint: Dyspnea and wheezing This is a 27-year-old male with pertinent history of asthma who presents to the ER for evaluation of shortness of breath and wheezing. Patient states he started having symptoms about a week ago, progressive in onset and without relieving factors. It initially started with a dry cough. Patient states he used inhalers previously, but recently ran out of them. Patient denies fever, chills, chest discomfort, palpitations, recent sick contacts or recent travel. No changes in urinary or bowel habits, no abdominal pain. He previously smoked tobacco but states he has now quit. Has never been intubated for asthma In the emergency department, patient was found to be wheezing and requiring 2 L supplemental oxygen. Review of Systems Constitutional: Constitutional: Reports no additional constitutional complaints Cardiovascular: Cardiovascular: Reports no additional cardiovascular complaints and Reports dyspnea Respiratory: Respiratory: Reports cough, Reports dyspnea and Reports wheezing Gastrointestinal: Gastrointestinal: Reports no additional gastrointestinal complaints Genitourinary: Genitourinary: Reports no additional male genitourinary complaints Allergic/Immunologic: Allergic/Immunologic: Reports wheezing [facility] Medical History Asthma No known health problems Functional capacity: independent ambulation Social History Patient Tobacco Use Status: Never used Tobacco Smoked in Last 30 Days: No Use of substances other than those prescribed or required for medical reasons: No Substance Use Type: Marijuana Advance Directives: No Meds Allergies Allergy/AdvReac Type Severity Reaction Status Date / Time No Known Allergies Allergy Verified 07/18/22 21:10 Active Medications: Current Medications Acetaminophen (Acetaminophen 325 Mg Tablet) 650 mg PO Q6H PRN PRN Reason: Pain, Mild (Pain Scale 1-3) Albuterol/Ipratropium (Albuterol/Iprat 2.5/0.5mg 3 Ml Ampul.Neb) 3 ml INHALE RQ4H WHILE AWAKE [facility] Albuterol/Ipratropium (Albuterol/Iprat 2.5/0.5mg 3 Ml Ampul.Neb) 3 ml INHALE RQ4H PRN PRN Reason: wheezing Magnesium Sulfate (Magnesium Sulfate/H2o) 2 gm in 50 mls @ 25 mls/hr IV ONCE ONE Stop: 08/09/22 03:34 Last Admin: 08/09/22 01:46 Dose: 25 mls/hr Melatonin (Melatonin 3 Mg Tablet) 6 mg PO BEDTIME PRN PRN Reason: Insomnia Methylprednisolone Sodium Succinate (Methylprednisolone Sod Succ 40 Mg/Ml Vial) 40 mg IVPUSH BID [facility] Ondansetron HCl (Ondansetron Hcl 4 Mg/2 Ml Vial) 4 mg IVPUSH Q8H PRN PRN Reason: Nausea and Vomiting Pharmacy Consult (Consult Rx Perform Med Rec) 1 each MISCELLANE ONCE PRN PRN Reason: Consult order Sodium Chloride (0.9 % Sodium Chloride Flush 3 Ml Syringe) 3 ml IVFLUSH QSHIFT [facility] Physical Exam Vital Signs and Narrative: Vital Signs: Last Vital Signs Temp 98.4 F 08/09/22 01:54 Pulse 97 08/09/22 01:54 Resp 10 L 08/09/22 01:54 BP 122/69 08/09/22 01:54 Pulse Ox 97 08/09/22 01:54 O2 Del Method 08/09/22 01:54 O2 Flow Rate 2 08/09/22 01:54 BMI result Body Mass Index 21.6 Young male lying in bed in no distress Neck supple, no JVD tachycardic with regular rhythm, S1-S2 heard Regular breath sounds bilaterally, bilateral expiratory wheezes without crackles Abdomen soft nontender, no guarding, no rigidity Patient is awake, alert and oriented to self, place, time and person ; no focal motor deficit Psych: Normal mood No pedal edema Results Labs CBC and Chem 7: 08/09/22 00:37 08/09/22 00:37 Labs: Laboratory Results - last 24 hr 08/09/22 08/09/22 00:37 00:37 MCV 94.7 MCH 32.7 MCHC 34.5 RDW 12.1 Plt Count 261 D MPV 11.5 Immature Gran % (Auto) 0.2 Neut % (Auto) 42.8 L Lymph % (Auto) 29.9 [place] % (Auto) 12.1 H Eos % (Auto) 14.0 H Baso % (Auto) 1.0 Lymph # (Auto) 2.7 [place] # (Auto) 1.1 Eos # (Auto) 1.3 H Baso # (Auto) 0.1 Abs Immat Gran (auto) 0.02 Absolute Neuts (auto) 3.8 Absolute Nucleated RBC 0.000 Nucleated RBC % (auto) 0.0 Anion Gap 17 Estim Creat Clear Calc 112.1 Estimated GFR > 60 Random Glucose 114 Calcium 9.1 D Total Bilirubin 1.5 H AST 12 D ALT 13 Alkaline Phosphatase 63 D Total Protein 6.9 Albumin 4.1 Imaging Radiologist's Impressions: Impressions Chest X-Ray 08/09/22 00:40 IMPRESSION: Mild interstitial prominence, increased when compared to 07/18/2022, could be associated with asthma, bronchitis, reactive airways disease or atypical viral infections. No focal consolidation. Assessment and Plan (1) Asthma exacerbation: Qualifiers: Asthma severity: moderate Asthma persistence: persistent Qualified Code(s): J45.41 - Moderate persistent asthma with (acute) exacerbation Status: Acute (2) Hypoxia: Status: Acute Plan This is a 27-year-old male with pertinent history of asthma who presents to the ER for evaluation of shortness of breath and wheezing. #. Acute hypoxemic respiratory failure secondary to #. Asthma exacerbation - likely preceded by acute viral bronchitis and in the setting of running out of home inhaler. - Will admit patient with supplemental oxygen, currently on 2 L. Monitor and wean as tolerated maintain oxygen saturation greater than 92% - Administered IV magnesium, continue systemic steroids - DuoNebs scheduled and p.r.n. DVT prophylaxis: None. Patient is ambulatory Regular diet Full code Admit as inpatient and will require two night minimum hospital stay for need for supplemental oxygen Quality Stroke Does the patient have a stroke diagnosis?: No VTE Prior VTE?: No VTE Risk Level:: Medical - low VTE Device Contraindication: Treatment Not Indicated VTE Drug Contraindication: Treatment Not Indicated
[2022-08-09 02:46] LABS: Influenza A PCR NEGATIVE (Negative); Influenza B PCR NEGATIVE (Negative); Resp Syncy Virus RNA Qual PCR NEGATIVE (Negative); SARS COV2 PCR INHOUSE NEGATIVE (Negative)
[2022-08-09 06:20] LABS: Basophils Percent Auto 0.2 % (0-2); Eosinophils Absolute Auto 0.1 X10*3/uL (0.0-0.4); Eosinophils Percent Auto 0.4 % (0-4); Hematocrit 41.1 % (42.0-52.0); Hemoglobin 13.7 g/dl (14.0-18.0); Imm Gran Abs Auto 0.11 X10*3/uL (0.00-0.03); Imm Gran Pct Auto 0.7 % (0.0-0.4); Lymphocytes Absolute Auto 0.5 X10*3/uL (1.2-4.9); Lymphocytes Percent Auto 3.1 % (20-40); MANUAL DIFF FLAG SCAN; Mean Corpuscular HGB Conc 33.3 g/dl (31.0-36.0); Mean Corpuscular Hemoglobin 32.2 pg (27.0-33.0); Mean Corpuscular Volume 96.7 fL (80.0-98.0); Mean Platelet Volume 11.7 fL (9.4-12.4); Monocytes Absolute Auto 0.1 X10*3/uL (0.1-1.2); Monocytes Percent Auto 0.4 % (2-11); Neutrophils Absolute Auto 15.8 x10*3/uL (2.0-8.3); Neutrophils Percent Auto 95.2 % (45-73); Platelet Count 271 X10*3/uL (160-400); Red Blood Count 4.25 X10*6/uL (4.60-5.80); SCAN SMEAR FLAG 1; White Blood Count 16.6 X10*3/uL (4.8-10.8)
[2022-08-09 06:32] LABS: Anion Gap 22 (12-20); Blood Urea Nitrogen 19 mg/dL (9-16); Calcium 9.3 mg/dL (8.4-10.2); Carbon Dioxide 24 mmol/L (22-29); Chloride 97 mmol/L (96-108); Creatinine Clr Calc Pharmacy 91.4; Estimated Glomerular Filt Rate > 60; Glucose Random 186 mg/dL (60-115); Potassium 3.5 mmol/L (3.3-5.1); Sodium 139 mmol/L (135-145)
[2022-08-09 06:52] LABS: SLIDE REVIEW VERIFIED
--- NOTE | 2022-08-09 08:15 | PHA.MEDREC ---
Pharmacy Consult ? Medication Reconciliation Pharmacy has completed the medication reconciliation. Tried to use ic design manager to speak to patient and found he speaks Occitan quite well. He states he doesn't need family advocate so ic design manager left. According to patient he finished prednisone and doesn't take any otc meds or supplements. The only thing he uses is the albuterol rescue inhaler which he ran out of some time last week so he has not used it in a while.
[2022-08-09] MEDS: Albuterol/Iprat 2.5/0.5MG 3 ML AMPUL.NEB INHALE ×3 (08:48→20:10)
[2022-08-09] MEDS: methylPREDNISolone Sod Succ 40 MG/ML VIAL IVPUSH ×2 (09:07→21:51)
[2022-08-09] MEDS: 0.9 % Sodium Chloride Flush 3 ML SYRINGE IVFLUSH ×2 (09:07→14:39)
--- NOTE | 2022-08-09 09:59 | PM.EVENT ---
Event Note Date of Service: 08/09/22 Event Note: Day Team follow up S Seen and examined. Reports feeling better. States he ambulated to the bathroom and was not as SOB as yesterday. Reports that he does not have a PCP and has not been formally diagnosed with asthma. Symptoms worsening last 3 years. Reports multiple ED visits this year for asthma. O vitals -- last documented Gen - NAD CVS - S1S2 Lungs - tight with poor air entry, trace exp wheezing Abd - soft and nt Neuro - non-focal A/P 27 yo non-smoker who is admitted for suspected asthma (formally undiagnosed) continue solu-medrol and scheduled bronchodilators wean O2 possible d/c later today vs tomorrow depending on his O2 Will give referral to pulm to expedite asthma follow given he has no PCP
--- NOTE | 2022-08-09 18:46 | MHC.CM.PN ---
CM met with admitted patient in overflow with bed assignment pending. A&Ox3. Lives alone. No DME/services. Has not been vaccinated. Admitted with asthma exacerbation. Ran out of inhaler. Does not have a PCP. Hasn't been to doctor in many years. Given [facility] [place] [facility] and contact information for [facility]. Pt does not drive, so requests local PCP. Stressed importance of PCP with his asthma and importance of COVID vaccination, especially with asthma. Explained that pt can get the vaccine at any pharmacy, for free. Pt declines HCP at this time. States he doesn't know who he would choose. Pt mother is his contact- Merissa Andrade ([phone]). D/C plan: home without services. Pt will arrange transportation with his sister. CM will follow for d/c planning.
[2022-08-10] MEDS: 0.9 % Sodium Chloride Flush 3 ML SYRINGE IVFLUSH ×2 (00:47→09:06)
[2022-08-10 07:22] VITALS: BP 135/65; PULSE 73; RESP 18; TEMP 36.9; O2SAT 94
[2022-08-10 07:46] VITALS: PULSE 86; RESP 18; O2SAT 95
[2022-08-10] MEDS: Albuterol/Iprat 2.5/0.5MG 3 ML AMPUL.NEB INHALE ×2 (07:46→11:27)
[2022-08-10] MEDS: methylPREDNISolone Sod Succ 40 MG/ML VIAL IVPUSH (09:05)
--- NOTE | 2022-08-10 09:26 | P.CONPL_ITS ---
History of Present Illness History of Present Illness Consult date: 08/10/22 Requesting physician: Derek Barakat Chief complaint: Dyspnea Narrative: Patient seen for pulmonary consultation and follow-up. 27 years old single male, un-employed , lives alone in an apartment. Denies smoking cigarettes, smokes marijuana occasionally when some friends come to visit him, Denies using any illicit drugs. Unemployed because of asthma. States that he has symptoms of bronchial asthma since about 2 years ago. Has been visiting emergency room a few times during the year, and the prescription good short-acting bronchodilator given to him mostly from the emergency room. Also short courses of prednisone, he say is as long as he takes the tablets he feels fine, He ran out of his albuterol inhaler about 2 weeks ago. Had symptoms of mild upper respiratory infection probably viral, and started having cough and wheezing, he did not have albuterol inhaler. So presented to the emergency. On his presentation to the emergency room he was hypoxemic and required oxygen supplementation for a few hours. After treatment he is feeling better. He has had no fever chills or chest pain. He is not aware of any specific triggers which start his asthma attacks. Review of Systems Review of Systems: Yes all other systems are reviewed and are negative Eyes: Eyes: Reports no additional eye complaints ENT: Reports nasal congestion (Mild off and on) Cardiovascular: Cardiovascular: Reports no additional cardiovascular complaints Respiratory: Respiratory: Reports as per HPI Gastrointestinal: Gastrointestinal: Reports no additional gastrointestinal complaints Genitourinary: Genitourinary: Reports no additional male genitourinary complaints Musculoskeletal: Musculoskeletal: Reports no additional musculoskeletal complaints Integumentary/Breasts: Skin/Breast: Reports system reviewed and no additional complaints, except as docu Neurologic: Reports system reviewed and no additional complaints, except as documented Psychiatric: Psychiatric: Reports no additional psychiatric complaints PMF Past Medical History Medical History Asthma No known health problems Functional capacity: independent ambulation Social History Social History Household Members: None Housing: Apartment Do you presently have visiting nurse or other home services: No Patient Tobacco Use Status: Never used Tobacco Substance Use Type: Marijuana service: No Current occupational status: unemployed Meds Allergies Allergy/AdvReac Type Severity Reaction Status Date / Time No Known Allergies Allergy Verified 07/18/22 21:10 Active Medications: Current Medications Acetaminophen (Acetaminophen 325 Mg Tablet) 650 mg PO Q6H PRN PRN Reason: Pain, Mild (Pain Scale 1-3) Albuterol/Ipratropium (Albuterol/Iprat 2.5/0.5mg 3 Ml Ampul.Neb) 3 ml INHALE RQ4H WHILE AWAKE [facility] Last Admin: 08/10/22 07:46 Dose: 3 ml Albuterol/Ipratropium (Albuterol/Iprat 2.5/0.5mg 3 Ml Ampul.Neb) 3 ml INHALE RQ4H PRN PRN Reason: wheezing Melatonin (Melatonin 3 Mg Tablet) 6 mg PO BEDTIME PRN PRN Reason: Insomnia Methylprednisolone Sodium Succinate (Methylprednisolone Sod Succ 40 Mg/Ml Vial) 40 mg IVPUSH BID [facility] Last Admin: 08/10/22 09:05 Dose: 40 mg Ondansetron HCl (Ondansetron Hcl 4 Mg/2 Ml Vial) 4 mg IVPUSH Q8H PRN PRN Reason: Nausea and Vomiting Pharmacy Consult (Consult Rx Perform Med Rec) 1 each MISCELLANE ONCE PRN PRN Reason: Consult order Sodium Chloride (0.9 % Sodium Chloride Flush 3 Ml Syringe) 3 ml IVFLUSH QSHIFT [facility] Last Admin: 08/10/22 09:06 Dose: 3 ml Physical Exam Vital Signs: Vital Signs: Last Vital Signs Temp 98.4 F 08/10/22 07:22 Pulse 86 08/10/22 07:46 Resp 18 08/10/22 07:46 BP 135/65 08/10/22 07:22 Pulse Ox 94 08/10/22 07:22 O2 Del Method 08/10/22 07:22 O2 Flow Rate 2 08/09/22 05:35 BMI result Body Mass Index 21.6 Const: General: healthy appearing (Of a thin build), comfortable, no acute distress, alert and awake Orientation/consciousness: patient oriented x3 HEENT: Head: Yes normal to inspection General nose exam: No nasal polyps present and No nasal discharge present Face and sinus: Yes sinuses nontender Mouth: oropharynx normal Throat: Yes posterior oropharynx normal Eyes: General: appearance normal, both eyes and all related structures Neck: Neck: Yes normal visual inspection, Yes no lymphadenopathy, Yes trachea midline and Yes no JVD Thyroid: Thyroid normal Chest: Chest palpation & inspection: normal inspection of the chest, normal palpation of entire chest wall and no tenderness Resp: Other: Percussion note is resonant. At present he does have good breath sounds, equal on both sides. No wheezes rhonchi or crepitations are heard. Cardio: Palpation: normal PMI Rate: regular rate Rhythm: regular rhythm Heart sounds: no gallops and no murmurs Peripheral pulses: Peripheral pulses 2+ throughout GI: Palpation (GI): Soft to palpation, nontender, No hepatosplenomegaly present and no masses Auscultation: normal bowel sounds Back/Spine/Pelvis: Thoracic/Lumbar Spine: thoracic and lumbar spine normal to inspection Skin: General skin exam: no rashes or lesions noted Neuro: General: patient oriented x3 and no focal motor deficits Cranial nerves: Yes CN's II-XII intact bilaterally Extrem: General: Yes normal to inspection, Yes no clubbing, cyanosis or edema and Yes no calf tenderness Psych: Appearance: grossly normal and well kempt Speech and movement: Normal speech and movement present Results Laboratory Findings CBC and BMP: 08/09/22 05:52 08/09/22 05:52 Abnormal lab findings: Abnormal Labs 08/09/22 08/09/22 08/09/22 00:37 00:37 05:52 WBC 16.6 H RBC 4.16 L 4.25 L Hgb 13.6 L 13.7 L Hct 39.4 L 41.1 L Immature Gran % (Auto) 0.7 H Neut % (Auto) 42.8 L 95.2 H Lymph % (Auto) 3.1 L [place] % (Auto) 12.1 H 0.4 L Eos % (Auto) 14.0 H Lymph # (Auto) 0.5 L Eos # (Auto) 1.3 H Abs Immat Gran (auto) 0.11 H Absolute Neuts (auto) 15.8 H Anion Gap BUN 19 H D Random Glucose Total Bilirubin 1.5 H 08/09/22 05:52 WBC RBC Hgb Hct Immature Gran % (Auto) Neut % (Auto) Lymph % (Auto) [place] % (Auto) Eos % (Auto) Lymph # (Auto) Eos # (Auto) Abs Immat Gran (auto) Absolute Neuts (auto) Anion Gap 22 H BUN 19 H Random Glucose 186 H D Total Bilirubin Diagnostic Findings Chest x-ray: report reviewed and image reviewed Assessment and Plan (1) Asthma with acute exacerbation: Status: Acute (2) Hypoxia: Status: Acute Plan Patient started having acute attack of bronchial asthma, with mild exacerbation probably due to nonspecific viral infection. He had to come to the emergency room due to lack of bronchodilator inhaler at home. Hypoxemia on arrival to the emergency room probably due to diffuse bronchospasm and VQ abnormalities has improved. This morning on my examination his asthma seems to be controlled, and back to baseline. RECC . Prednisone 40 mg a day for 5 days, Albuterol HFA 2 puffs Q 4-6 hours p.r.n.. May also be started on [id number] puffs b.i.d.. Patient would need follow-up as outpatient, he can make appointment for pulmonary follow-up, within 1-2 weeks. We will arrange for doing a pulmonary function test on him , and then instruct him to continue with future preventive measures. Procedures Date of Service Date of Service: 08/10/22
[2022-08-10 11:27] VITALS: PULSE 89; RESP 18; O2SAT 95
--- NOTE | 2022-08-10 12:57 | PM.DS ---
DS: Providers Provider Date of Service: 08/10/22 Date of admission: 08/09/22 01:37 Date of discharge: 08/10/22 Primary care physician: None Physician Consults: 08/10/22 08:33 Consult to Pulmonology Stat Consulting Provider: Perri Landry Reason for consultation: RAD Has provider been notified: No DS: Diagnosis Discharge Diagnosis (1) Asthma with acute exacerbation: Status: Acute (2) Hypoxia: Status: Acute DS: Summary Hospital Course Hospital Course: 27-year-old male with pertinent history of asthma who presents to the ER for evaluation of shortness of breath and wheezing.? Patient states he started having symptoms about a week ago, progressive in onset and without relieving factors.? It initially started with a dry cough. ? Patient states he used inhalers previously, but recently ran out of them.? Patient denies fever, chills, chest discomfort, palpitations, recent sick contacts or recent travel.? No changes in urinary or bowel habits, no abdominal pain.? He previously smoked tobacco but states he has now quit.? Has never been intubated for asthma Hospital Course Admitted to the general medical floor. Given pulse dose steroids over the next 24 hours improved dramatically. Seen by pulmonology who will follow as outpatient. Recommended completing an oral prednisone taper and starting on Flovent. Patient also given albuterol rescue inhaler Time Spent with Patient Time attestation: Total time spent providing and/or coordinating discharge services: Discharge coordination time: Greater than 30 minutes Quality: Safe Use of Opioids Does Pt have an Active Cancer Diagnosis on the Problem List?: No Quality: Stroke Does the patient have a stroke diagnosis?: No Physical Exam Vital Signs: Vital Signs: Last Vital Signs Temp 98.4 F 08/10/22 07:22 Pulse 89 08/10/22 11:27 Resp 18 08/10/22 11:27 BP 135/65 08/10/22 07:22 Pulse Ox 94 08/10/22 07:22 O2 Del Method 08/10/22 07:22 O2 Flow Rate 2 08/09/22 05:35 BMI result Body Mass Index 21.6 Resp: Other: Clear to auscultation bilaterally with scant expiratory wheezes throughout. Good aeration to bases Cardio: Other: No S4; positive S1-S2; no S3 murmurs rubs or gallops GI: Other: Soft nontender nondistended with normoactive bowel sounds Extrem: Other: No edema bilaterally Discharge Plan Discharge Anticipated Discharge Date/Time: 08/10/22 14:15 Patient Disposition: Home, Self-Care Discharge Diagnosis: Asthma exacerbation Referrals: Physician,None [Primary Care Provider] - 1 Week Discharge Medications: New prednisone 10 mg tablet See Rx Instructions .Route .COMPLEX Qty: 45 0RF Rx Instructions: 10 mg orally; 5 tabs p.o. daily x3 days; 4 tabs p.o. daily x3 days; 3 tabs daily x3 days; 2 tabs daily x3 days; 1 tab daily x3 days fluticasone propionate [Flovent HFA] 110 mcg/actuation HFA aerosol inhaler 2 puff inhalation BID Qty: 12 2RF Continued albuterol sulfate 90 mcg/actuation HFA aerosol inhaler 2 puff inhalation Q4-6H PRN (Reason: shortness of breath or wheezing) Qty: 8.5 2RF Discharge Orders: Discharge Order (Routine); Ordered 08/10/22 Ordered By: Derek Barakat Diet: Advance to usual diet Activity on Discharge: As tolerated Stand Alone Forms: Patient Portal Discharge page Care Plan Goals: Complete prednisone taper as ordered. Albuterol inhaler 2 puffs every 4 hours for wheezing Health Concerns: You an appointment with Dr. Landry 09/01/2022 at 10:30 Plan of Treatment: Return to ER if breathing worsens despite prednisone and albuterol Assessment: See discharge summary Patient Instructions: Asthma (ED) Discharge Date/Time: 08/10/22 15:20
--- NOTE | 2022-08-10 13:27 | MHC.CM.PN ---
Patient is discharged today to home self-care. She has arranged for transport home.
== END 2022-08-10 15:20 | disposition home or self-care (01) | DRG 141 ==
LOC: HO.ED 08-09 01:25 → HO.EDOVER 08-09 01:42 → HO.S3 08-09 19:33
PROVIDERS: Admitting Provider Student in an Organized Health Care Education/Training Program; Emergency Provider Emergency Medicine; Visit Provider Hospitalist
DX: J45.41 Moderate persistent asthma with (acute) exacerbation (principal); J96.01 Acute respiratory failure with hypoxia; B34.9 Viral infection, unspecified; Z91.14 Patient's other noncompliance with medication regimen; Z20.822 Contact with and (suspected) exposure to COVID-19; Z56.0 Unemployment, unspecified; Z79.899 Other long term (current) drug therapy
CPT/HCPCS: 0241U; 36415; 71045; 80048; 80053; 85025; 94640; 99218; 99285; J2920; J2930; J3475

== ENCOUNTER 2022-10-26 00:44 | Emergency (ER) | payer MEDICAID, SELFPAY ==
--- NOTE | ~2022-10-26 | XR_ITS ---
EXAMINATION: XR CHEST CLINICAL INFORMATION: Difficulty breathing COMPARISON: 08/09/2022 TECHNIQUE: Frontal view of the chest was obtained. FINDINGS: The lungs are clear with no focal consolidation. No evidence of pneumothorax, pulmonary edema, or pleural effusions. The cardiomediastinal silhouette is unremarkable. No acute osseous findings. XR/XR chest 1V IMPRESSION: No acute cardiopulmonary findings.
[2022-10-26 00:55] VITALS: BP 118/81; PULSE 92; RESP 18; TEMP 36.6; O2SAT 90; BMI 21.6
--- NOTE | 2022-10-26 01:17 | ED.ASTHMA ---
HPI - Asthma General Chief Complaint: Asthma Stated Complaint: Asthma Time Seen by Provider: 10/26/22 01:08 Source: patient Mode of arrival: ambulatory Limitations: no limitations History of Present Illness HPI Narrative: Patient comes to the emergency room complaining of shortness of breath/asthma exacerbation. Patient states that he had an exacerbation approximately 2 weeks ago, he was prescribed prednisone. Patient did well while he was on prednisone but right after urine output, all of his symptoms restarted. Patient has been having frequent asthma exacerbation for the last 2 weeks. Today, patient was too short of breath and came to the hospital. On arrival to triage, oxygen saturation in the low 90s. Related Data Previous Rx's Medication Instructions Recorded albuterol sulfate 90 mcg/actuation 2 puff inhalation Q4-6H PRN 08/10/22 aerosol inhaler shortness of breath or wheezing #8.5 grams fluticasone propionate 110 2 puff inhalation BID #12 grams 08/10/22 mcg/actuation HFA aerosol inhaler (Flovent HFA) prednisone 10 mg tablet See Rx Instructions .Route 08/10/22 .COMPLEX #45 tabs albuterol sulfate 90 mcg/actuation 2 puff inhalation Q4-6H PRN 10/26/22 aerosol inhaler shortness of breath or wheezing #8.5 grams prednisone 50 mg tablet 50 mg PO DAILY #4 tabs 10/26/22 Allergies Allergy/AdvReac Type Severity Reaction Status Date / Time No Known Allergies Allergy Verified 07/18/22 21:10 Review of Systems Review of Systems: Constitutional : No Weight loss, No Fever, No Chills, No Night Sweats, No Fatigue, No Malaise ENT/Mouth : No Hearing loss, No Ear Pain, No Nasal Congestion, No Sinus Pain, No Hoarseness, No sore throat, No Rhinorrhea, No Swallowing Difficulty Eyes: No Eye Pain, No Swelling, No Redness, No Foreign Body, No Discharge, No Vision Changes Cardiovascular : No Chest Pain, No SOB, No Dyspnea on Exertion, No Orthopnea, No Edema, No Palpitations Respiratory : Complaining of cough, wheezing, shortness of breath/tightness Gastrointestinal : No Nausea, No Vomiting, No Diarrhea, No Constipation, No abdominal Pain, No Hematochezia, No Melena Genitourinary : no irregular bleeding, No Dysuria, No Urinary Frequency, No Hematuria, No Urinary Incontinence, No Urgency, No Flank Pain, No Urinary Flow Changes, No Hesitancy Musculoskeletal : No joint pain, No Myalgias, No Joint Swelling Skin : No Skin Lesions, No rash Neuro : No Weakness, No Numbness, No Paresthesias, No Loss of Consciousness, No Dizziness, No Headache Psych : No Anxiety/Panic, No Depression, No SI/HI/AH/VH, No Social Issues, Heme/Lymph: No Bruising, No Bleeding,No Lymphadenopathy Endocrine : No Polyuria, No Polydipsia, No Temperature Intolerance [facility] Past Medical History Medical History Asthma No known health problems Social History Social History Household Members: None Housing: Apartment Do you presently have visiting nurse or other home services: No Patient Tobacco Use Status: Never used Tobacco Substance Use Type: Marijuana Advance Directives: No Advance Directives Information Provided: Yes service: No Current occupational status: unemployed Physical Exam Vital Signs: Vital Signs: Last Vital Signs Temp 97.9 F 10/26/22 00:55 Pulse 88 10/26/22 01:24 Resp 16 10/26/22 01:24 BP 118/81 10/26/22 00:55 Pulse Ox 90 L 10/26/22 00:55 O2 Del Method 10/26/22 00:55 BMI result Body Mass Index 21.6 Const: Other: Appearance: Alert. Oriented X3. No acute distress. Eyes: Pupils equal, round and reactive to light. ENT: Pharynx normal. Neck: Normal inspection. Neck supple. No lymph nodes noted. No crepitus CVS: Normal heart rate and rhythm. Pulses normal. Normal S1 and S2 Respiratory: Patient wheezing, mild rales, no crackles. Oxygen saturation 90% on room air Abdomen: Soft and nontender. No rigidity. No distention. Skin: Skin warm and dry. Normal skin color. Normal skin turgor. Extremities: No lower extremity edema. No Lacerations. No Rash Neuro: Oriented X 3. No motor deficit. No sensory deficit. Moving all extremities. No slurred speech. CN 2 through 12 grossly intact Psych: calm, cooperative, normal affect Course Course Course Narrative: -patient is actively wheezing, patient receiving albuterol 10 mg nebulization treatment, IV Solu-Medrol and magnesium. -labs and chest x-ray pending. -after treatment we will re-evaluate, decide on disposition -of patient's labs and imaging pending. Sign-out given to Dr. Grajeda Medications Administered Discontinued Medications Generic Name Dose Route Start Last Admin Trade Name Freq PRN Reason Stop Dose Admin Albuterol Sulfate 10 mg 10/26/22 01:11 10/26/22 01:21 Albuterol Sulfate (0.083%) 2.5 Mg/3 Ml Vial.Neb INHALE 10/26/22 01:12 10 mg ONCE ONE Administration Medical Decision Making Differential Diagnosis Differential Diagnoses: The differential diagnosis associated with the presentation includes (Asthma exacerbation, RSV, COVID) Independent Interpretation I performed an independent interpretation of an: Plain X-Ray (My interpretation of chest x-ray: No acute findings, no pneumonia) Discharge Plan Discharge Clinical Impression: Asthma with acute exacerbation Patient Disposition: Still a Patient Instructions: Asthma (ED) Additional Instructions: Please follow-up with your primary care physician tomorrow. If you have any worsening or new symptoms, please return to the emergency room or call 911 Prescriptions: New albuterol sulfate 90 mcg/actuation HFA aerosol inhaler 2 puff inhalation Q4-6H PRN (Reason: shortness of breath or wheezing) Qty: 8.5 1RF prednisone 50 mg tablet 50 mg PO DAILY Qty: 4 0RF No Action prednisone 10 mg tablet See Rx Instructions .Route .COMPLEX Qty: 45 0RF Rx Instructions: 10 mg orally; 5 tabs p.o. daily x3 days; 4 tabs p.o. daily x3 days; 3 tabs daily x3 days; 2 tabs daily x3 days; 1 tab daily x3 days albuterol sulfate 90 mcg/actuation HFA aerosol inhaler 2 puff inhalation Q4-6H PRN (Reason: shortness of breath or wheezing) Qty: 8.5 2RF fluticasone propionate [Flovent HFA] 110 mcg/actuation HFA aerosol inhaler 2 puff inhalation BID Qty: 12 2RF
[2022-10-26] MEDS: Albuterol Sulfate (0.083%) 2.5 MG/3 ML VIAL.NEB 10 MG INHALE (01:21)
[2022-10-26 01:24] VITALS: PULSE 88; RESP 16; O2SAT 90
[2022-10-26 01:50] LABS: Influenza A PCR NEGATIVE (Negative); Influenza B PCR NEGATIVE (Negative); Resp Syncy Virus RNA Qual PCR NEGATIVE (Negative); SARS COV2 PCR INHOUSE NEGATIVE (Negative)
[2022-10-26] MEDS: Magnesium Sulfate/H2O 2 GM/50 ML PIGGYBACK IV (01:54)
[2022-10-26] MEDS: methylPREDNISolone Sod Succ 125 MG/2 ML VIAL IVPUSH (01:55)
[2022-10-26 01:58] LABS: MANUAL DIFF FLAG NO
--- NOTE | 2022-10-26 01:58 | PC.NURSE ---
Medicated per Mar, will continue to monitor
[2022-10-26 02:23] LABS: Anion Gap 14 (12-20); Blood Urea Nitrogen 14 mg/dL (9-16); Calcium 9.9 mg/dL (8.4-10.2); Carbon Dioxide 29 mmol/L (22-29); Chloride 102 mmol/L (96-108); Estimated Glomerular Filt Rate > 60; Glucose Random 150 mg/dL (60-115); Potassium 3.5 mmol/L (3.3-5.1); Sodium 141 mmol/L (135-145)
[2022-10-26 02:24] LABS: Basophils Absolute Auto 0.1 X10*3/uL (0.0-0.2); Basophils Percent Auto 0.6 % (0-2); Eosinophils Absolute Auto 1.7 X10*3/uL (0.0-0.4); Eosinophils Percent Auto 13.3 % (0-4); Hematocrit 40.8 % (42.0-52.0); Hemoglobin 14.5 g/dl (14.0-18.0); Imm Gran Abs Auto 0.04 X10*3/uL (0.00-0.03); Imm Gran Pct Auto 0.3 % (0.0-0.4); Lymphocytes Absolute Auto 2.9 X10*3/uL (1.2-4.9); Lymphocytes Percent Auto 23.4 % (20-40); Mean Corpuscular HGB Conc 35.5 g/dl (31.0-36.0); Mean Corpuscular Hemoglobin 33.8 pg (27.0-33.0); Mean Corpuscular Volume 95.1 fL (80.0-98.0); Mean Platelet Volume 11.7 fL (9.4-12.4); Monocytes Absolute Auto 0.9 X10*3/uL (0.1-1.2); Monocytes Percent Auto 6.8 % (2-11); Neutrophils Absolute Auto 6.9 x10*3/uL (2.0-8.3); Neutrophils Percent Auto 55.6 % (45-73); Platelet Count 298 X10*3/uL (160-400); Red Blood Count 4.29 X10*6/uL (4.60-5.80); Red Cell Distribution Width 12.1 % (11.0-16.0); White Blood Count 12.5 X10*3/uL (4.8-10.8)
[2022-10-26 02:52] VITALS: BP 123/66; PULSE 106; RESP 20; TEMP 36.9; O2SAT 95
--- NOTE | 2022-10-26 02:56 | PC.NURSE ---
Pt MEEKS x 4 reporting is feeling better post medication regimen.
--- NOTE | 2022-10-26 03:21 | PC.NURSE ---
Pt verbalizes understanding of discharge instructions reports doesn't have a PCP. Rn advises to go to [facility] to get assigned to a PCP. Pt in agreement.
== END 2022-10-26 03:23 | disposition home or self-care (01) ==
PROVIDERS: Emergency Provider Emergency Medicine
DX: J45.901 Unspecified asthma with (acute) exacerbation (principal); Z20.822 Contact with and (suspected) exposure to COVID-19; Z20.828 Contact with and (suspected) exposure to other viral communicable diseases; F12.90 Cannabis use, unspecified, uncomplicated
CPT/HCPCS: 0241U; 36415; 71045; 80048; 85025; 94640; 96374; 96375; 99284; 99285; J2930; J3475